=== PATIENT | female | born 1995 | race Caucasian/White ===

== ENCOUNTER 2019-08-27 13:20 | Observation (INO) | payer MEDICAID, SELFPAY ==
[2019-08-27] VITALS (18 sets, daily range): BP systolic 79–123; BP diastolic 43–84; PULSE 59–99; RESP 15–17; TEMP 36.1–37.1; O2SAT 98–100; BMI 30.5; BMI 29.1; BMI 29.2
--- NOTE | 2019-08-27 13:59 | US_ITS ---
STUDY: FIRST TRIMESTER OBSTETRICAL ULTRASOUND REASON FOR EXAM: Female, 24 years old VAGINAL BLEEDING, PELVIC PAIN HCG 1496 LMP: 06/18/2019 TECHNIQUE: Transabdominal and Transvaginal TECHNICAL QUALITY: Adequate. PRIOR ULTRASOUND: None. FINDINGS: There is no demonstrated intrauterine gestational sac. There is no demonstrated embryo ( pole). The estimated gestation age (EGA) by LMP is 10 weeks, 0 days. The estimated date of delivery (ABI) by LMP is 03/24/2020. The uterus measures 10.0 x 4.9 x 4.3 cm. Abnormal endometrial echoes. Endometrial echoes are heterogeneous and difficult to accurately measure but the endometrial cavity may be as much as 3 cm across, especially toward the endocervical canal. Findings are nonspecific but very likely represent retained products of conception. There is no demonstrated uterine fibroid. The cervix is grossly closed. The right ovary is not visualized. The left ovary measures 2.8 x 3.2 x 1.3 cm. There is no left ovarian cyst. There is no visualized left adnexal mass or complex lesion. There is mild fluid in the cul de sac. US/Transvaginal w/Preg US IMPRESSION: No evidence for normal intrauterine gestation. Abnormal endometrial cavity, most likely representing retained products of conception. Electronically Signed: Ji Jiang MD at 16:31 EDT , Service support ,
[2019-08-27] MEDS: 0.9% Normal Saline 1,000 ML 1000 ML IV (14:27)
[2019-08-27] MEDS: Morphine 4 MG/ML Syringe IV (14:27)
[2019-08-27] MEDS: Ondansetron 4 MG/2 ML Vial IV (14:28)
[2019-08-27 14:37] LABS: Mucous, Urine 0 SEEN /hpf (<or=2+); White Blood Cells 0 SEEN /hpf (0-5)
--- NOTE | 2019-08-27 14:37 | ED.DCSUM_ITS ---
History of Present Illness Chief Complaint: Vag Bld, Preg Informant: Patient Pain: Pelvic Pain Onset: Yesterday Context: Gradual Onset Timing: Intermittent Quality: Cramping, Sharp Issue: Vaginal bleeding, Passing clots, Passing tissue Onset: Yesterday Context: Gradual Onset Timing: Continuous Current Severity: Heavy Associated Symptoms: Missed Period Last known menstrual period: 06/18 Test: Positive Sexually: Active P: 0 Narrative: Patient is a 24-year-old female with no significant past medical history presenting with concern for miscarriage. Patient states for past 2 days she has had worsening cramping and vaginal bleeding. She states she had a positive test at the end of June. Her last menstrual period was the end of May. She has not followed up with an CRACKING MACHINE OPERATOR since then. Patient states she is going to about a pad an hour. She does not have an CRACKING MACHINE OPERATOR. She not taken anything for pain including Tylenol ibuprofen. She did try to take some Robaxin that she had from a prior hip procedure yesterday but it was not helpful. Patient describes her abdominal pain as sharp and cramping. She states it feels like her prior miscarriage. Past Medical History - Allergies and Home Meds Allergies/Adverse Reactions: Allergies acetaminophen [From Vicodin] Adverse Reaction (Verified 08/27/19 14:18) Upset Stomach hydrocodone [From Vicodin] Adverse Reaction (Verified 08/27/19 14:18) Upset Stomach Primary Care Physician: Care Physician,No Primary [Primary Care Provider] - Past Medical History: None Surgical History: - - Left hip surgery Smoking Status: Current every day smoker Review of Systems General: Denies: Chills, Fever, Sweats Eyes: Denies: Visual changes - bilaterally, Diplopia ENT: Denies: Rhinorrhea, Sore throat Cardiovascular: Denies: Chest pain, Palpitations Respiratory: Denies: Dyspnea, Cough, Dyspnea on exertion Gastrointestinal: Reports: Abdominal pain, Nausea. Denies: Vomiting, Diarrhea, Melena, Hematochezia Genitourinary: Reports: - - Vaginal bleeding. Denies: Dysuria, Hematuria, Frequency Musculoskeletal: Denies: Back pain, Extremity Pain Skin: Denies: Rash, Wounds Neurological: Denies: Headache, Weakness, Numbness Physical Exam Vital Signs/Narrative: Vital Signs Temp Pulse Resp BP Pulse Ox 08/27/19 13:22 97.6 F L 98 15 123/84 H 99 Inital Vital Signs reviewed: Yes General: Well nourished, Well developed Head: Normocephalic, Atraumatic Eyes: Perrl, EOMI ENT: Moist mucous membranes, No rhinorrhea Neck: Supple, Nontender Cardiovascular: Regular rate, Regular rhythm, No murmurs Respiratory: No distress, CTA bilaterally, Chest nontender Abdomen: Soft, Nondistended, Normal bowel sounds, Tender - Suprapubic region. Negative for: Guarding, Rebound tenderness Back: Nontender, Normal Inspection. Negative for: CVA tenderness Extremities: Nontender, No edema Skin: Normal color, No rash Neurological: Alert, Oriented x3, Cranial nerves II-XII grossly intact, Normal Strength, Normal Sensation Psychological: Normal affect Diagnostic/Tx/Re-eval Laboratory Data 08/27/19 08/27/19 08/27/19 14:25 14:25 14:25 WBC 13.4 H RBC 4.26 Hgb 13.5 Hct 39.6 MCV 93.0 MCH 31.7 MCHC 34.1 RDW Std Deviation 40.8 RDW Coeff of Basia 12.0 Plt Count 265 MPV 9.9 Immature Gran % (Auto) 0.500 Neut % (Auto) 79.3 H Lymph % (Auto) 15.1 L [place] % (Auto) 4.5 Eos % (Auto) 0.4 Baso % (Auto) 0.2 Absolute Neuts (auto) 10.6 H Absolute Lymphs (auto) 2.02 Nucleated RBC % 0 HCG, Quant 1496 H Urine Color Urine Clarity Urine pH Ur Specific [place] Urine Protein Urine Glucose (UA) Urine Ketones Urine Occult Blood Urine Nitrite Urine Bilirubin Urine Urobilinogen Ur Leukocyte Esterase Urine RBC Urine WBC Ur Squamous Epith Cells Urine Bacteria Urine Mucus Blood Type O POSITIVE 08/27/19 14:25 WBC RBC Hgb Hct MCV MCH MCHC RDW Std Deviation RDW Coeff of Basia Plt Count MPV Immature Gran % (Auto) Neut % (Auto) Lymph % (Auto) [place] % (Auto) Eos % (Auto) Baso % (Auto) Absolute Neuts (auto) Absolute Lymphs (auto) Nucleated RBC % HCG, Quant Urine Color Yellow Urine Clarity Sl. Cloudy Urine pH 6.5 Ur Specific [place] 1.010 Urine Protein Negative Urine Glucose (UA) Normal Urine Ketones Negative Urine Occult Blood 250 H Urine Nitrite Negative Urine Bilirubin Negative Urine Urobilinogen Normal Ur Leukocyte Esterase Negative Urine RBC 25-50 SEEN Urine WBC 0 SEEN Ur Squamous Epith Cells 0-5 SEEN Urine Bacteria 1+ Urine Mucus 0 SEEN Blood Type - Treatment/Re-Evaluation Treatment: Morphine IV - Medical Decision/Diagnostic Studies Evaluated for vaginal bleeding and pelvic cramping. She has had a positive home test. Her presentation is concerning for miscarriage versus ectopic . Given her degree of bleeding however I suspect more likely this is a miscarriage. Patient is Rh+ and does not require RhoGam. She is hemodynamica lly stable in the emergency room with a normal hemoglobin. She is not lightheaded or having any symptoms consistent with acute blood loss anemia. She is given morphine for pain control. Patient signed out to oncoming provider, Dr. Valdez, to follow ultrasound results. Patient will need referral to CRACKING MACHINE OPERATOR. ED Disposition - Plan for ED Patient: Referrals: Care Physician,No Primary [Primary Care Provider] -
[2019-08-27 14:39] LABS: Absolute Lymphocyte Count 2.02 X10^3/uL (0.83-4.51); Absolute Neutrophil Count 10.6 X10^3/uL (2.0-7.7); Basophil# 0.03 X10^3/uL; Basophil% 0.2 % (0-1); Color, Urine Yellow (Yellow); Eosinophil# 0.06 X10^3/uL; Eosinophils% 0.4 % (0-5); Glucose, Dipstick Normal (Normal); Hematocrit 39.6 % (37-47); Hemoglobin 13.5 g/dL (12.0-15.0); Ketone-Dipstick Negative (Negative); Leukocyte Esterase-Dipstick Negative /ul (Negative); Lymphocyte # 2.02 X10^3/ul (4.0); Lymphocyte % 15.1 % (19-41); Mean Corp Hgb Conc 34.1 g/dL (32-36); Mean Corpuscular Hgb 31.7 pg (27.0-32.0); Mean Platelet Vol. 9.9 fl (6.2-12.0); Monocyte# 0.61 X10^3/uL; Monocyte% 4.5 % (0-10); NRBC Flagged by Analyzer 0 % (0-5); Neutrophil # 10.63 X10^3/uL (2.7-7.7); Neutrophil % 79.3 % (47-70); Nitrite-Dipstick Negative (Negative); Occult Blood-Urine 250 /ul (Negative); Platelet Count 265 K/mm3 (150-450); Protein-Dipstick Negative (Negative); RBC Distribution Width SD 40.8 fl (35.1-43.9); Red Blood Count 4.26 M/mm3 (4.2-5.4); Urine Bilirubin Dipstick Negative (Negative); Urine Clarity Sl. Cloudy (Clear); Urine Urobilinogen Normal (Normal); Urine pH 6.5 (5.0 - 8.0); White Blood Count 13.4 K/mm3 (4.4-11.0)
[2019-08-27 14:48] LABS: Bacteria 1+ /hpf (None Seen); Red Blood Cells-Urine 25-50 SEEN /hpf (0-5); Squamous Epithelial Cells - UA 0-5 SEEN /hpf (5-10)
[2019-08-27 15:10] LABS: hCG Titer Quant., Serum 1496 mIU/mL (1-3)
[2019-08-27] MEDS: Ketorolac 15 MG/ML Vial IV (17:17)
--- NOTE | 2019-08-27 18:54 | PCM.HP.OB ---
- Problem List (1) Incomplete miscarriage Status: Acute History Date of Admission: 08/27/19 History of this : This is a 24 year-old, G 1, P 0, at ~9 weeks gestational age who presents with vaginal bleeding and cramping. She is uncertain of her LMP but thinks she is around 9 wks . She has had VB and cramping for 2 days. She says yesterday her bleeding became heavy and she was changing 1 pad per hour. Medical History: Medical History (Last Updated 08/27/19 @ 18:[address] Manisha Lew, DO) Asthma J45.909 Surgical History: Surgical History (Last Updated 08/27/19 @ 18:[address] Manisha Lew, DO) History of hip surgery Z98.890 Allergies acetaminophen [From Vicodin] Adverse Reaction (Verified 08/27/19 14:18) Upset Stomach hydrocodone [From Vicodin] Adverse Reaction (Verified 08/27/19 14:18) Upset Stomach Home Medications: Home Medications NK 08/27/19 Smoking Status: Current every day smoker History Past Pregnancies: Past Pregnancies Delivery Date Name GA/ Weeks Outcome Route Wt Infant Sex Labor Length Anesthesia Delivery Location Provider FOB Review of Systems Constitutional: Denies: Chills, Fever Eyes: Denies: Blurred vision HEENT: Denies: Head Aches Cardiovascular: Denies: Chest Pain Respiratory: Denies: Cough, Shortness of Breath Gastrointestinal: Reports: Abdominal Pain. Denies: Nausea, Vomiting Genitourinary: Denies: Dysuria Gynecological: Denies: Breast symptoms Hematologic/ Lymphatic: Denies: Anemia, Easy Bruising, Easy Bleeding, Hx of blood clot, Hx of blood transfusion Physical Exam Vitals: Vital Signs Temp Pulse Resp BP Pulse Ox 98.8 F 70 17 112/62 99 08/27/19 18:47 08/27/19 18:47 08/27/19 18:47 08/27/19 18:47 08/27/19 18:47 General: Alert, No apparent distress HEENT: Atraumatic Cardiovascular: Regular rate Lungs: Clear to auscultation Abdomen: Soft, Non-Distended Extremities:: No edema Neurological: Neuro grossly intact BARGE MASTER: Normal external genitalia Assessment/Plan All Active Problems Incomplete miscarriage (Acute) This is a 24 year-old, who presents to the ED with an incomplete miscarriage. - Pelvic US shows retained POC's - Rh positive - Hgb 13 but significant blood loss noted on exam. She appears pale. Will recheck CBC now and then post-op - POC's noted within endocervix but unable to remove on exam due to heavy bleeding - Recommended suction D&C. Discussed risks, benefits, alternatives to a suction D&C with patient and she desires to proceed - Discussed possible observation overnight and pt became upset as she does not want her parents to know of the . Discussed risks of acute blood loss anemia including . Will see what her Hgb is now and post-op to see if she is ok for discharge post-op
[2019-08-27 19:34] LABS: Hematocrit 31.5 % (37-47); Hemoglobin 10.5 g/dL (12.0-15.0); Mean Corp Hgb Conc 33.3 g/dL (32-36); Mean Corpuscular Hgb 31.3 pg (27.0-32.0); Mean Corpuscular Volume 93.8 fL (81-99); Mean Platelet Vol. 10.2 fl (6.2-12.0); Platelet Count 224 K/mm3 (150-450); RBC Distribution Width CV 12.2 % (11.6-14.6); RBC Distribution Width SD 41.8 fl (35.1-43.9); Red Blood Count 3.36 M/mm3 (4.2-5.4); White Blood Count 11.1 K/mm3 (4.4-11.0)
--- NOTE | 2019-08-27 20:15 | POC_PTH ---
PATIENT: BRENNEN WATT LOC: MS3 U#:[id number] AGE/SX: 24/ ROOM: [facility] RE08/27/[address]: Dr. Manisha Lew DO : 1995 BED: 1 DIS: 08/28/2019 SPEC #: [id number] RECD: 08/28/19 07:36 STATUS: LICHA REBrandon #: [id number] DUSTY: 08/27/19 20:[address]: Manisha Lew DEPT: SURGICAL PATHOLOGY RECD BY: Emerson Velarde ENTERED: 08/28/19 09:39 SP TYPE: PROD CONC OTHR DR: No Primary Care Phys Tissues: Product of conception, NOS Procedures: Surgery Specimen Level IV HEADER OPERATION: Suction D & C PRE-OP DIAGNOSIS: Incomplete miscarriage TISSUE SUBMITTED: Products of conception MICROSCOPIC DIAGNOSIS Products of conception: Fragments of immature placental tissue (products of conception). SJ:raciel 7/10/20 MICROSCOPIC DESCRIPTION Slides are reviewed. GROSS DESCRIPTION Received in fixative is one container labeled with the patient's name and designated products of conception. The specimen consists of multiple fragments of hemorrhagic soft tissue that in aggregate measure 6 x 6 x 3 cm. A piece of hemorrhagic tissue consistent with possible placental tissue is also noted. tissue is not identified. The possible placental tissue measures 4 x 3.5 x 2 cm. Phosphoric Acid Operator sections are submitted in two cassettes. / SJ:raciel 08/28/19 TC:5 CPT: 94637
--- NOTE | 2019-08-27 20:42 | DCINST_ITS ---
Discharge Diet: No Restrictions Discharge Activity: May Not Drive - for 24 hours after surgery, May Shower Return to work on:: 08/29/19 May resume sexual activity in: 1-2 weeks Weight Bearing Status: Weight bearing as tolerated Lifting Restrictions: No lifting restrictions Call your doctor if you observe: Fever of 101 or Higher, Inability to urinate, Inability to have a bowel movement, Using more than one pad per hour, Shortness of breath, Dizziness, Fainting spells, Chest pain, Increased palpitations (irregular heartbeat), Calf discomfort, Uncontrolled pain Additional Instructions: Nothing in the vagina for 1-2 weeks and not until the bleeding stops - this includes no hot tubs, baths, pools, tampons, intercourse. Allergies/Adverse Reactions: Allergies acetaminophen [From Vicodin] Adverse Reaction (Verified 08/27/19 14:18) Upset Stomach hydrocodone [From Vicodin] Adverse Reaction (Verified 08/27/19 14:18) Upset Stomach Medications to take at Discharge NK 08/27/19 Primary Care Physician: Care Physician,No Primary [Primary Care Provider] - Test Results: Test results from this visit will be discussed in further detail at your follow- up appointment, if applicable. Please Follow Up With: Manisha Lew DO When: 1 week
--- NOTE | 2019-08-27 20:47 | PCM.WORK.EX ---
Work/School Excuse Work/School Excuse for:: Patient Please excuse this person from:: Work From: 08/27/19 through: 08/28/19 - Can return to work on 08/29/19.
--- NOTE | 2019-08-27 20:48 | PCM.OPRPT ---
Problem List (1) Incomplete miscarriage Status: Acute Report of Operation Date of Procedure: 08/27/19 Pre-Operative Diagnosis: Incomplete miscarriage Post-Operative Diagnosis: As above Surgery/Procedure Performed:: Suction D&C Description of Surgical Findings:: Uterus enlarged to about 9-10 weeks in size. Heavy vaginal bleeding once back in OR. POC's noted. Type of Anesthesia:: MAC Special Medications: None Specimen's removed: Products of conception Drains: None Estimated Blood Loss (mL): 50 Description of Procedure: The patient was taken back to the operating room where MAC anesthesia was found to be adequate. She was prepped and draped in the usual sterile fashion in dorsal lithotomy position using yellowfin stirrups. Doxycycline was given through the IV prior to start of the procedure. A weighted speculum was placed in the vagina and the cervix was exposed. The anterior lip of the cervix was grasped with a single-tooth tenaculum. The cervix was serially dilated to accommodate a size 9 suction curettage. Several passes were made with removal of tissue. A gentle pass was made with the sharp curettage, and additional products were noted anteriorly. A size 12 suction curettage was then used to remove additional products of conception anteriorly. Several passes were made with the suction curettage until no additional tissue was noted. Bleeding was hemostatic and uterus was firm. All instruments were removed from the vagina. Instrument sponge counts were correct. Vaginal sweep was performed. Patient was taken to the recovery room in stable condition. Grafts/Implants Used: None - Complications None - Admit VTE Documentation VTE Present on Admission: No VTE Mechan Device Prophylaxis: SCD's
[2019-08-27] MEDS: Lactated Ringers 500 ML 999 ML IV (22:45)
--- NOTE | 2019-08-27 22:45 | SUR.PHASEII ---
paged Dr Lew at 1017, did not call back At 1030 requested that she be paged again, was told that I would need to speak to Trish Trinh. Trish ordered CBC and 500cc bolus of LR. Will call her back with cbc results.
[2019-08-27 22:57] LABS: Hematocrit 28.3 % (37-47); Hemoglobin 9.2 g/dL (12.0-15.0); Mean Corp Hgb Conc 32.5 g/dL (32-36); Mean Corpuscular Hgb 31.1 pg (27.0-32.0); Mean Corpuscular Volume 95.6 fL (81-99); Mean Platelet Vol. 10.1 fl (6.2-12.0); Platelet Count 227 K/mm3 (150-450); RBC Distribution Width CV 12.2 % (11.6-14.6); RBC Distribution Width SD 42.2 fl (35.1-43.9); Red Blood Count 2.96 M/mm3 (4.2-5.4); White Blood Count 10.5 K/mm3 (4.4-11.0)
[2019-08-28] VITALS (8 sets, daily range): BP systolic 95–128; BP diastolic 34–48; PULSE 61–86; RESP 16; TEMP 36.4–36.9; O2SAT 98–100
[2019-08-28] MEDS: 0.9% Normal Saline 1,000 ML 15 ML IV (00:07)
[2019-08-28 06:38] LABS: Hematocrit 25.5 % (37-47); Hemoglobin 8.5 g/dL (12.0-15.0); Mean Corp Hgb Conc 33.3 g/dL (32-36); Mean Corpuscular Hgb 31.8 pg (27.0-32.0); Mean Corpuscular Volume 95.5 fL (81-99); Platelet Count 225 K/mm3 (150-450); RBC Distribution Width CV 12.5 % (11.6-14.6); RBC Distribution Width SD 43.2 fl (35.1-43.9); Red Blood Count 2.67 M/mm3 (4.2-5.4); White Blood Count 9.7 K/mm3 (4.4-11.0)
--- NOTE | 2019-08-28 11:57 | PCM.PN.OB ---
Patient Problems: Active and Suspected Problems (Last Updated 08/27/19 @ 18:[address] Manisha Lew, DO) Incomplete miscarriage (Acute) Subjective: Patient doing well. She reports she is ambulated and voided this morning. She states she is lightheaded and dizzy just lying in bed. Vaginal bleeding is very minimal. She is not having any pain. She desires to go home today. - Physical Exam Vitals/I&O's: Vital Signs Temp Pulse Resp BP Pulse Ox 98.3 F 83 16 97/42 L 98 08/28/19 11:53 08/28/19 11:53 08/28/19 11:53 08/28/19 11:53 08/28/19 11:53 Oxygen Delivery Method Room Air Weight: 186 lb 4.65 oz Body Mass Index (BMI) 29.1 Intake and Output for Last 24 Hours 08/26/19 08/27/19 08/28/19 23:59 23:59 23:59 Intake Total 1770 / 1770 474.5 / 474.5 Output Total 300 / 300 900 / 900 Balance 1470 / 1470 -425.5 / -425.5 General: Alert, No apparent distress HEENT: Atraumatic Abdomen: Soft, Non Tender, Non-Distended Extremities: No edema Skin: No rashes Neurological: Neuro grossly intact Psych/Mental Status: Normal Affect, Appropriate Laboratory Results 08/27/19 14:25: WBC 13.4 H, RBC 4.26, Hgb 13.5, Hct 39.6, MCV 93.0, MCH 31.7, MCHC 34.1, RDW Std Deviation 40.8, RDW Coeff of Basia 12.0, Plt Count 265, MPV 9.9, Immature Gran % (Auto) 0.500, Neut % (Auto) 79.3 H, Lymph % (Auto) 15.1 L, [place] % (Auto) 4.5, Eos % (Auto) 0.4, Baso % (Auto) 0.2, Absolute Neuts (auto) 10.6 H, Absolute Lymphs (auto) 2.02, Nucleated RBC % 0 08/27/19 14:25: HCG, Quant 1496 H 08/27/19 14:25: Blood Type O POSITIVE 08/27/19 14:25: Urine Color Yellow, Urine Clarity Sl. Cloudy, Urine pH 6.5, Ur Specific [place] 1.010, Urine Protein Negative, Urine Glucose (UA) Normal, Urine Ketones Negative, Urine Occult Blood 250 H, Urine Nitrite Negative, Urine Bilirubin Negative, Urine Urobilinogen Normal, Ur Leukocyte Esterase Negative, Urine RBC 25-50 SEEN, Urine WBC 0 SEEN, Ur Squamous Epith Cells 0-5 SEEN, Urine Bacteria 1+, Urine Mucus 0 SEEN 08/27/19 14:25: Blood Type O POSITIVE, Antibody Screen NEGATIVE, Crossmatch See Detail 08/27/19 19:15: WBC 11.1 H, RBC 3.36 L, Hgb 10.5 L, Hct 31.5 L, MCV 93.8, MCH 31.3, MCHC 33.3, RDW Std Deviation 41.8, RDW Coeff of Basia 12.2, Plt Count 224, MPV 10.2 08/27/19 22:50: WBC 10.5, RBC 2.96 L, Hgb 9.2 L, Hct 28.3 L, MCV 95.6, MCH 31.1, MCHC 32.5, RDW Std Deviation 42.2, RDW Coeff of Basia 12.2, Plt Count 227, MPV 10.1 08/28/19 06:20: WBC 9.7, RBC 2.67 L, Hgb 8.5 L, Hct 25.5 L, MCV 95.5, MCH 31.8, MCHC 33.3, RDW Std Deviation 43.2, RDW Coeff of Basia 12.5, Plt Count 225, MPV 10.0 Current Medications Hydrocodone Bitart/Acetaminophen ([place] 5mg-325mg) 1 - 2 tablet PO Q6H PRN PRN PRN Reason: Pain Score 6-10/10 Sodium Chloride () 1,000 mls @ 15 mls/hr IV .Q48H TONY Last Infusion: 08/28/19 11:45 Dose: 0 mls/hr Documented by: Ondansetron HCl (Zofran) 4 mg IM X1 PRN PRN Reason: NAUSEA Sodium Chloride () 10 - 40 ml IV UD PRN PRN Reason: SALINE FLUSH Medical Necessity - Tobacco Use Smoking Status: Current every day smoker Tobacco Use: Cigarettes Assessment/Plan All Active Problems (Last Updated 08/27/19 @ 18:[address] Manisha Lew, DO) Incomplete miscarriage (Acute) The patient status post suction D&C for an incomplete miscarriage. She was admitted given postop syncope and acute blood loss anemia. She has symptoms of anemia this morning. HDS. Discussed risks, benefits, alternatives to blood transfusion and she is agreeable to receiving 1 unit of packed red blood cells. Consent was obtained to give a blood transfusion. Will check CBC after the blood transfusion. If patient does well after the transfusion she is okay to go home. Discharge instructions reviewed.
--- NOTE | 2019-08-28 11:59 | DCINST_ITS ---
Discharge Diet: No Restrictions Discharge Activity: May Not Drive - for 24 hours after surgery, May Shower Return to work on:: 08/29/19 May resume sexual activity in: 1-2 weeks Weight Bearing Status: Weight bearing as tolerated Call your doctor if you observe: Fever of 101 or Higher, Inability to urinate, Inability to have a bowel movement, Using more than one pad per hour, Shortness of breath, Dizziness, Fainting spells, Chest pain, Increased palpitations (irregular heartbeat), Calf discomfort, Uncontrolled pain Additional Instructions: Nothing in the vagina for 1-2 weeks and not until the bleeding stops - this includes no hot tubs, baths, pools, tampons, intercourse. Allergies/Adverse Reactions: Allergies acetaminophen [From Vicodin] Adverse Reaction (Verified 08/27/19 14:18) Upset Stomach hydrocodone [From Vicodin] Adverse Reaction (Verified 08/27/19 14:18) Upset Stomach Medications to take at Discharge Methocarbamol [Robaxin] 500 mg PO 4X/DAY PRN 08/27/19 Primary Care Physician: Care Physician,No Primary [Primary Care Provider] - Test Results: Test results from this visit will be discussed in further detail at your follow- up appointment, if applicable. Please Follow Up With: Manisha Lew DO When: 1 week
[2019-08-28] MEDS: 0.9% Saline Lock 10 ML Syringe IV ×2 (12:24→12:25)
[2019-08-28 16:47] LABS: Hemoglobin 8.9 g/dL (12.0-15.0); Mean Corpuscular Hgb 31.1 pg (27.0-32.0); Mean Corpuscular Volume 94.4 fL (81-99); Mean Platelet Vol. 10.3 fl (6.2-12.0); Platelet Count 198 K/mm3 (150-450); RBC Distribution Width CV 12.8 % (11.6-14.6); RBC Distribution Width SD 43.9 fl (35.1-43.9); Red Blood Count 2.86 M/mm3 (4.2-5.4); White Blood Count 8.4 K/mm3 (4.4-11.0)
== END 2019-08-28 17:37 | disposition home or self-care (01) ==
LOC: ED 14:05 → SDC 19:33 → AC 19:33 → MS3 08-28 08:49
PROVIDERS: Advanced Practice Midwife; Admitting Provider Obstetrics & Gynecology; Emergency Provider Emergency Medicine; Visit Provider Obstetrics & Gynecology
PROC: (CPT 59812; principal; 2019-08-27 20:15)
DX: O03.4 Incomplete spontaneous abortion without complication (principal); F17.210 Nicotine dependence, cigarettes, uncomplicated; Z3A.09 9 weeks gestation of pregnancy; J45.909 Unspecified asthma, uncomplicated
CPT/HCPCS: 01965; 59812; 36415; 36430; 76817; 81001; 84702; 85025; 85027; 86850; 86900; 86901; 86920; 86922; 88305; 96374; 96375; 99218; 99282; J7030; J7120; P9016; A4216; G0378; G0379; J2405

== ENCOUNTER 2020-01-31 14:04 | Emergency (ER) | payer MEDICAID, SELFPAY ==
[2019-08-27 23:48] VITALS: BMI 29.1
[2020-01-31 14:05] VITALS: BP 127/73; PULSE 77; RESP 16; TEMP 36.1; O2SAT 100; BMI 28.1
--- NOTE | 2020-01-31 14:25 | ED.VIS.GEN ---
History of Present Illness Informant: Patient Onset: Yesterday Narrative: 44-year-old female presents with dental pain x2 to 3 days. She states her left lower posterior molar has been cracked for a long time. It started bothering her over the last few days and drainage. Denies fevers, chills, nausea, or vomiting. She is trying to get into a dentist. <Ursula Kimbrough - Last Filed: 01/31/20 14:25> <Steven Levine - Last Filed: 01/31/20 14:46> Chief Complaint: Dental Past Medical History Past Medical History: None Surgical History: - - Left hip surgery Smoking Status: Current every day smoker <Ursula Kimbrough - Last Filed: 01/31/20 14:25> <Steven Levine - Last Filed: 01/31/20 14:46> - Allergies and Home Meds Allergies/Adverse Reactions: Allergies acetaminophen [From Vicodin] Adverse Reaction (Verified 01/31/20 14:05) Upset Stomach hydrocodone [From Vicodin] Adverse Reaction (Verified 01/31/20 14:05) Upset Stomach Primary Care Physician: Care Physician,No Primary [Primary Care Provider] - Review of Systems General: Denies: Chills, Fever, Sweats Eyes: Denies: Visual changes - bilaterally, Diplopia ENT: Reports: - - dental pain. Denies: Rhinorrhea, Sore throat Cardiovascular: Denies: Chest pain, Palpitations Respiratory: Denies: Dyspnea, Cough, Dyspnea on exertion Gastrointestinal: Denies: Abdominal pain, Nausea, Vomiting, Diarrhea, Melena, Hematochezia Genitourinary: Denies: Dysuria, Hematuria, Frequency Musculoskeletal: Denies: Back pain, Extremity Pain Skin: Denies: Rash, Wounds Neurological: Denies: Headache, Weakness, Numbness <Ursula Kimbrough - Last Filed: 01/31/20 14:25> Physical Exam Vital Signs/Narrative: Vital Signs Temp Pulse Resp BP Pulse Ox 01/31/20 14:05 97 F L 77 16 127/73 H 100 ENT: - - Skin appears normal, no swelling, diffuse dental caries, tender over left lower posterior molar which is partially cracked, no palpable abscess, no trismus or tongue elevation, sublingual space is soft, airway intact, neck has good range of motion. <Ursula Kimbrough - Last Filed: 01/31/20 14:25> Vital Signs/Narrative: Vital Signs Temp Pulse Resp BP Pulse Ox 01/31/20 14:05 97 F L 77 16 127/73 H 100 <Steven Levine - Last Filed: 01/31/20 14:46> Diagnostic/Tx/Re-eval - Medical Decision Making Patient presented with dental pain. Patient appears well and nontoxic. Vital signs are within normal limits. She has diffuse dental caries. Left lower posterior molar is partially cracked which is chronic. No periapical abscess on exam. She was given Penicillin VK and advised to take ibuprofen. Follow up with a dentist. Return for new or worsening issues. <Ursula Kimbrough - Last Filed: 01/31/20 14:25> - Medical Decision Making Patient presents the emergency room for evaluation of 1 week of dental pain. Patient has focal tenderness on the left inferior posterior most molar. There is focal decay. No trismus. Mild facial swelling but no erythema no fever. Patient was started on antibiotics. Instructions to follow-up with dentistry as soon as possible. <Steven Levine - Last Filed: 01/31/20 14:46> ED Disposition <Ursula Kimbrough - Last Filed: 01/31/20 14:25> <Steven Levine - Last Filed: 01/31/20 14:46> - Plan for ED Patient: Disposition: Home or Assisted Living Diagnosis: Dental caries Instructions: Dental Abscess Prescriptions: Penicillin V Potassium 500 mg PO 4X/DAY #40 tab Prescription Printed Referrals: Care Physician,No Primary [Primary Care Provider] -
== END 2020-01-31 14:40 | disposition home or self-care (01) ==
LOC: ED 14:38
PROVIDERS: Emergency Provider Physician Assistant
DX: K02.9 Dental caries, unspecified (principal); F17.200 Nicotine dependence, unspecified, uncomplicated
CPT/HCPCS: 99282

== ENCOUNTER 2021-10-24 19:55 | Emergency (ER) | payer MEDICAID, SELFPAY ==
[2021-10-24 19:56] VITALS: BP 122/81; PULSE 92; RESP 18; TEMP 36.8; O2SAT 94; BMI 26.2
--- NOTE | 2021-10-24 20:13 | EDS_ITS ---
HPI History of Present Illness Chief Complaint: Dental Informant: patient Onset/Context/Timing Onset: Days (2 days) Context: Gradual Onset Narrative Narrative: Patient presents secondary to left lower dental pain. She states that a year ago she was seen in dentist in [place] that split her molar in half. She refused to let any other work be done and it has been like this for the past y ear. Have not bothered her until 2 days ago and now she has severe pain in that area going down her neck. She is taking Tylenol and ibuprofen without improvement. [facility] Medical History Asthma Dental caries Home Medications penicillin V potassium 250 mg tablet 500 mg PO 4X/DAY #40 tabs 10/24/21 [Rx Last Taken Unknown] tramadol 100 mg tablet 100 mg PO TID PRN pain #10 tabs 10/24/21 [Rx Last Taken Unknown] Allergy/AdvReac Type Severity Reaction Status Date / Time acetaminophen [From Vicodin] AdvReac Upset Verified 10/24/21 19:55 Stomach hydrocodone [From Vicodin] AdvReac Upset Verified 10/24/21 19:55 Stomach Surgical History History of hip surgery Social History Smoking Status: Current every day smoker tobacco type: cigarettes ROS ROS ED Constitutional Constitutional ED: Denies chills or fever(s) Eyes Eyes: Denies change in vision or discharge from eye(s) ENT ENT ED: Reports other Details: Dental pain ; Denies discharge from eye(s), rhinorrhea or sore throat Cardiovascular Cardiovascular: Denies chest pain or palpitations Respiratory/Chest Respiratory/Chest: Denies cough or dyspnea Gastrointestinal Gastrointestinal: Denies abdominal pain, diarrhea, nausea or vomiting Genitourinary Genitourinary ED: Denies dysuria Musculoskeletal Musculoskeletal: Denies back pain or extremity pain Integumentary Denies Abrasions or rash Neurologic Neurologic: Denies headache(s) or weakness Allergic/Immunologic Allergic/Immunologic ED: Denies lip swelling or urticaria EXAM Physical Exam Const Vital Signs: 10/24/21 19:56 Temperature 98.2 F Temperature Source Temporal Pulse Rate 92 Respiratory Rate 18 Blood Pressure 122/81 H Blood Pressure Mean 94 Pulse Ox 94 Oxygen Delivery Method Room Air Positive well nourished and well developed General Appearance ED: well developed HEENT Reports normocephalic and head/scalp atraumatic HEENT Narrative: No facial edema or erythema. Patient speaking with strong voice and tolerating secretions well. Intraoral examination reveals multiple dental caries. Her left mandibular first molar is split with the lateral portion of the tooth missing. There is mild surrounding gum edema. There is no trismus. Eyes PERRL and EOMs intact bilaterally Neck supple Chest Wall inspection of chest normal and palpation of chest normal Resp normal respiratory effort and clear to auscultation bilaterally Cardio regular rate and regular rhythm GI non-tender Palpation: soft Extremity normal to inspection Neuro oriented x3 and no sensory deficits noted Sensorium / Orientation: alert Motor Exam: strength 5/5 throughout Psych Mood & Affect: tearful Skin no rashes or lesions noted MDM MDM MDM Narrative Medical decision making narrative: Patient will be prescribed Pen-Vee K as well as tramadol. She will continue her Tylenol and ibuprofen. Dental referral list has been provided. Discharge Plan Triage Chief Complaint: Dental ED Provider: Agueda Cuellar Dx/Rx/DC Orders Clinical Impression: Odontalgia Instructions: ED Dental Pain Prescriptions: New penicillin V potassium 250 mg tablet 500 mg PO 4X/DAY Qty: 40 0RF tramadol 100 mg tablet 100 mg PO TID PRN (Reason: pain) Qty: 10 0RF Primary Care Provider: Care Physician,No Primary Referrals: Care Physician,No Primary [Primary Care Provider] - Activity Restrictions/Additional Instructions: Dental referral list provided. Disposition Disposition: Home, Self Care
[2021-10-24] MEDS: Penicillin Vk 250 MG Tablet 500 MG PO (20:17)
[2021-10-24] MEDS: traMADol 50 MG Tablet 100 MG PO (20:18)
== END 2021-10-24 20:22 | disposition home or self-care (01) ==
LOC: ED 20:20
PROVIDERS: Emergency Provider Emergency Medicine; Visit Provider Emergency Medicine
DX: K08.89 Other specified disorders of teeth and supporting structures (principal); F17.210 Nicotine dependence, cigarettes, uncomplicated
CPT/HCPCS: 99283

== ENCOUNTER 2022-01-31 08:30 | Inpatient (IN) | payer MEDICAID, SELFPAY ==
[2022-01-31] VITALS (45 sets, daily range): BP systolic 113–162; BP diastolic 44–114; PULSE 53–187; RESP 14–18; TEMP 35.7–36.8; O2SAT 81–100; BMI 32.4
[2022-01-31 08:37] LABS: ROM Internal Control Test YES-OK TO RESULT pt. (Internal QC); ROM Patient Test Negative (Negative)
[2022-01-31] MEDS: Lactated Ringers 1,000 ML 999 ML IV ×2 (08:55→11:01)
[2022-01-31] MEDS: Betamethasone/Betamethasone 30 MG/5 ML Vial 12 MG IM (08:56)
[2022-01-31] MEDS: LACTATED RINGERS 500 ML 999 ML IV (09:00)
[2022-01-31 09:10] LABS: Absolute Lymphocyte Count 2.16 X10^3/uL (0.83-4.51); Absolute Neutrophil Count 13.1 X10^3/uL (2.0-7.7); Basophil# 0.05 X10^3/uL; Basophil% 0.3 % (0-1); Eosinophil# 0.02 X10^3/uL; Eosinophils% 0.1 % (0-5); Hematocrit 36.4 % (37-47); Hemoglobin 12.5 g/dL (12.0-15.0); Lymphocyte # 2.16 X10^3/ul (0.83-4.51); Lymphocyte % 13.3 % (19-41); Mean Corp Hgb Conc 34.3 g/dL (32-36); Mean Corpuscular Volume 90.3 fL (81-99); Monocyte# 0.74 X10^3/uL; Monocyte% 4.6 % (0-10); NRBC Flagged by Analyzer 0 % (0-5); Neutrophil # 13.12 X10^3/uL (2.7-7.7); Neutrophil % 81.1 % (47-70); Platelet Count 193 K/mm3 (150-450); RBC Distribution Width CV 12.5 % (11.6-14.6); RBC Distribution Width SD 40.9 fl (35.1-43.9); Red Blood Count 4.03 M/mm3 (4.2-5.4); White Blood Count 16.2 K/mm3 (4.4-11.0)
[2022-01-31 09:28] LABS: Bacteria 0 SEEN /hpf (None Seen); Mucous, Urine 0 SEEN /hpf (<or=2+)
[2022-01-31 09:30] LABS: Color, Urine Yellow (Yellow); Glucose, Dipstick Normal (Normal); Ketone-Dipstick 5 mg/dl (Negative); Leukocyte Esterase-Dipstick 100 /ul (Negative); Nitrite-Dipstick Negative (Negative); Occult Blood-Urine 150 /ul (Negative); Protein-Dipstick 30 mg/dl (Negative); Urine Bilirubin Dipstick Negative (Negative); Urine Clarity Sl. Cloudy (Clear); Urine Urobilinogen 1 mg/dl (Normal)
[2022-01-31 09:40] LABS: Red Blood Cells-Urine 0-5 SEEN /hpf (0-5); Squamous Epithelial Cells - UA 0-5 SEEN /hpf (5-10); White Blood Cells 0-5 SEEN /hpf (0-5)
[2022-01-31 09:44] LABS: Amphetamine Urine VISTA POSITIVE (<1000 ng/mL); Barbiturate Urine VISTA NEGATIVE (< 200 ng/mL); Benzodiazepine Urine VISTA NEGATIVE (< 200 ng/mL); Cocaine Urine VISTA NEGATIVE (< 300 ng/mL); Ecstacy Urine VISTA POSITIVE (< 500 ng/mL); Methadone Urine VISTA NEGATIVE (< 300 ng/mL); PCP Urine VISTA NEGATIVE (< 25 ng/mL); THC Urine VISTA NEGATIVE (< 50 ng/mL); Vista UDS pH Range 5
[2022-01-31 09:57] LABS: Rubella IgG Reactive (Nonreactive); Syphilis Antibodies Non-reactive
[2022-01-31 10:29] LABS: HIV - WCH Non-Reactive (Nonreactive); Hepatitis B Surface Antigen Non-Reactive (Nonreactive); Hepatitis C Antibody Non-Reactive (Nonreactive)
[2022-01-31] MEDS: fentaNYL-bupivacaine (epidural) 100 ML BAG EPIDURAL (11:06)
--- NOTE | 2022-01-31 12:44 | PCM.HP.OB ---
[facility] - General General Date of Admission: 01/31/22 Date of Service: 01/31/22 Chief Complaint: labor HPI Narrative BRENNEN WATT, is a 26 3 who para 0 with last menstrual period of 05/11/2021 who has had 1 visit in our office last week with some lab work and no official ultrasound presents today complaining contractions that started about 3 AM. She denied any vaginal bleeding or leaking of fluid. She felt good movement. Obstetric history significant for 1 spontaneous miscarriage and 1 induced . Social history is significant for tobacco and marijuana use. Patient denies other drug use during the . Patient consented verbally for urine tox screen today. Patient denies any history of sexually transmitted diseases. Maternal Data Information Final ABI: 02/15/22 Final ABI Source: LMP (only) Gestational age: 37 6/7 PFSH PFSH Medical History Asthma Dental caries Home Medications aspirin 81 mg capsule 162 mg PO DAILY 01/31/22 [History Last Taken Unknown] Allergy/AdvReac Type Severity Reaction Status Date / Time acetaminophen [From Vicodin] AdvReac Upset Verified 01/31/22 08:20 Stomach hydrocodone [From Vicodin] AdvReac Upset Verified 01/31/22 08:20 Stomach milk AdvReac Nausea Verified 01/31/22 08:21 Surgical History History of hip surgery Social History Smoking Status: Current every day smoker tobacco type: cigarettes History Elective abortions Hx Para 0 Spontaneous abortions Hx # Term Pregnancies Ectopic pregnancies Hx # Pregnancies Multiple births # of living children ROS Constitutional Constitutional: Denies fatigue, fever(s) or malaise Eyes Eyes: Denies change in vision ENT HEENT: Denies dizziness or headache(s) Cardiovascular Cardiovascular: Denies chest pain, dyspnea or lightheadedness Respiratory/Chest Respiratory/Chest: Denies cough or dyspnea Gastrointestinal Gastrointestinal: Denies change in bowel habits Genitourinary Genitourinary: Denies burning urination or genital lesions Integumentary Integumentary: Denies rash Neurologic Neurologic: Denies confusion, dizziness, headache(s), numbness or weakness Vital Signs Vital Signs Vital Signs: 01/31/22 08:14 01/31/22 08:14 01/31/22 09:35 Temperature Temperature Source Pulse Rate 113 H Blood Pressure 141/89 H 137/98 H BP Systolic 141 137 BP Diastolic 89 98 Pulse Ox 01/31/22 09:35 01/31/22 09:42 01/31/22 09:42 Temperature Temperature Source Pulse Rate 72 75 Blood Pressure BP Systolic BP Diastolic Pulse Ox 96 01/31/22 09:45 01/31/22 09:45 01/31/22 09:47 Temperature Temperature Source Pulse Rate 58 L 85 Blood Pressure 128/71 H BP Systolic 128 BP Diastolic 71 Pulse Ox 01/31/22 09:47 01/31/22 09:50 01/31/22 09:50 Temperature Temperature Source Pulse Rate 94 Blood Pressure 135/81 H BP Systolic 135 BP Diastolic 81 Pulse Ox 92 01/31/22 09:52 01/31/22 09:52 01/31/22 09:54 Temperature Temperature Source Pulse Rate 77 Blood Pressure 118/69 BP Systolic 118 BP Diastolic 69 Pulse Ox 100 01/31/22 09:54 01/31/22 09:57 01/31/22 09:57 Temperature Temperature Source Pulse Rate 87 89 Blood Pressure BP Systolic BP Diastolic Pulse Ox 100 01/31/22 09:59 01/31/22 09:59 01/31/22 10:02 Temperature Temperature Source Pulse Rate 86 90 Blood Pressure 116/65 BP Systolic 116 BP Diastolic 65 Pulse Ox 01/31/22 10:02 01/31/22 10:06 01/31/22 10:06 Temperature Temperature Source Pulse Rate 88 Blood Pressure BP Systolic BP Diastolic Pulse Ox 100 86 01/31/22 10:07 01/31/22 10:07 01/31/22 10:11 Temperature Temperature Source Pulse Rate 88 86 Blood Pressure BP Systolic BP Diastolic Pulse Ox 98 01/31/22 10:11 01/31/22 10:15 01/31/22 10:15 Temperature Temperature Source Pulse Rate 89 Blood Pressure BP Systolic BP Diastolic Pulse Ox 89 99 01/31/22 10:30 01/31/22 10:30 01/31/22 11:00 Temperature Temperature Source Pulse Rate 91 Blood Pressure 118/64 132/90 H BP Systolic 118 132 BP Diastolic 64 90 Pulse Ox 01/31/22 11:00 01/31/22 11:04 01/31/22 11:04 Temperature 96.6 F L Temperature Source Temporal Pulse Rate 92 Blood Pressure BP Systolic BP Diastolic Pulse Ox 01/31/22 11:46 01/31/22 11:46 Temperature 97.2 F L Temperature Source Temporal Pulse Rate Blood Pressure BP Systolic BP Diastolic Pulse Ox Weight Weight: 91.2 kg Body Mass Index (BMI) 32.4 Physical Exam Const alert and no apparent distress General Appearance: cooperative HEENT normocephalic HEENT Narrative: extensive dental carries Resp normal respiratory effort Cardio regular rate GI soft to palpation GI Narrative: gravid, nontender, appropriate for gestational age Extremity no calf tenderness General Extremity: edema Skin no wounds Rashes: No rashes noted Psych activity/motor behavior normal Labs Labs Labs: Blood Type O POSITIVE Antibody Screen NEGATIVE Hct 36.4 % (37-47) L Hgb 12.5 g/dL (12.0-15.0) Obstetrics US Syphilis Total Ab Non-reactive Rubella IgG Antibody Reactive (Nonreactive) Hep Bs Antigen Non-Reactive (Nonreactive) HIV 1&2 Antibody Non-Reactive (Nonreactive) Assessment & Plan (1) 37 weeks gestation of : PLAN: Estimated weight is less than 4500 g clinically. Pelvis clinically adequate to expect vaginal delivery. May have epidural or nitrous oxide as needed for pain control Patient's only had 1 visit no official dating ultrasound. Will use last menstrual period for dating but pediatrics is aware of uncertain dates. Initially when patient arrived I was informed she was 35 weeks and so she was given 1 dose of betamethasone and group B strep prophylaxis was initiated. She had already had a cervical exam so rapid GBS was not sent. We will continue GBS prophylaxis since it was initiated and GBS is unknown even though I am considering her 37 weeks at this time. Pediatrics and social work case manager are aware. labs sent in anticipation of delivery as records were not available when patient arrived (2) Spontaneous onset of labor: (3) Poor patient attendance of care:
[2022-01-31] MEDS: Penicillin G 3,000,000 Units 50 ML 100 UNITS IV (13:43)
[2022-01-31] MEDS: Cefazolin 2 GM in 0.9% Normal Saline 100 ML IV (14:27)
[2022-01-31] MEDS: Methylergonovine 0.2 MG/ML Ampul IM (14:45)
[2022-01-31 14:55] LABS: Hemoglobin A1c 5.1 % (3.8-5.6)
--- NOTE | 2022-01-31 15:00 | PLAC_PTH ---
PATIENT: BRENNEN WATT LOC: [facility] U#:[id number] AGE/SX: 26/F ROOM: WP009 RE01/31/[address]: Dr. Yuridia Villagomez MD : 1995 BED: 1 DIS: 02/03/2022 SPEC #: [id number] RECD: 01/31/22 22:29 STATUS: LICHA REBrandon #: [id number] DUSTY: 01/31/22 15:[address]: Yuridia Villagomez DEPT: SURGICAL PATHOLOGY RECD BY: Emerson Velarde ENTERED: 02/01/22 09:37 SP TYPE: PLACENTA OTHR DR: No Primary Care Phys Tissues: Placenta, NOS Procedures: Surgery Specimen Level V HEADER OPERATION: Primary section PRE-OP DIAGNOSIS: decelerations TISSUE SUBMITTED: Placenta MICROSCOPIC DIAGNOSIS Ryan placenta (610 gm): Umbilical cord ? trivascular with acute funisitis Placental membranes ? acute chorioamnionitis and acute deciduitis. Placental disc ? remote infarcts, Anthony-Reilly change and focal nonspecific chronic villitis. AM:raciel 02/03/2022 MICROSCOPIC DESCRIPTION Slides are reviewed. GROSS DESCRIPTION SPECIMEN: PLACENTA / CLINICAL INFORMATION: A. Weight: 2.68 kg B. Gestational Age: 38 weeks C. Sex: Male PLACENTAL WEIGHT (POST FIXATION): 610 gm PLACENTAL DIMENSIONS: 17 x 18 x 4 cm PLACENTAL SHAPE: Usual ovoid PLACENTAL WEIGHT FOR GESTATIONAL AGE: over 99th percentile MEMBRANES - Present A. Insertion: Marginal B. Site of rupture from edge: At edge of placental disc C. Color of membrane: Ramos-rayo D. Abnormalities: None UMBILICAL CORD - Present A. Color: Ramos-rayo B. Insertion: Marginal C. Length: 32 cm D. Diameter: 1.2 cm E. Number of vessels: Three F. Abnormalities: None PLACENTAL DISC - Present A. Color of surface: Ramos-rayo B. surface abnormalities: None C. Maternal cotyledons: Intact with minimal tears D. Attached retro placental clot: No clot E. Cut surface: Dark red and spongy F. Lesions: Sections reveal a ramos, indurated area in the peripheral portion of the placenta measuring 2 cm in greatest dimension. G. Separate clot: Absent SECTIONS SUBMITTED: 1. Membrane roll 2. Cord, maternal end 3. Cord, end 4. Placental disc, and maternal surfaces, lesion 5. Placental disc, and maternal surfaces 6. Placental disc, and maternal surfaces SJ:raciel 02/02/2022 TC:2 CPT: 06631
--- NOTE | 2022-01-31 15:06 | EX.PCM.OBRPT ---
Assessment & Plan (1) Poor patient attendance of care: (2) Spontaneous onset of labor: (3) 37 weeks gestation of : (4) Prolonged heart deceleration: Maternal Data Information Final ABI: 02/15/22 Gestational age: 37 6/7 Details Operative Information Date of Procedure: 01/31/22 Pre-Operative Diagnosis: Recurrent prolonged decelerations remote from delivery Post-Operative Diagnosis: Same Procedure Type: low transverse principal quality engineer #1: Pat Rosa Type of Anesthesia: Epidural Anesthesiologist: Jaime De Los Santos Special Medications: one Antibiotic Given: Ancef 2 grams IV x1 Drain: Merino to straight drain Estimated Blood Loss: 700 Fluids Replaced: 1500 Procedure Start Time: 14:39 Procedure Stop Time: 15:09 Time of Delivery: 14:41 Findings Description of Procedure: The patient was taken to the operating room. She was prepped and draped in the dorsal supine position with a leftward tilt. A Pfannenstiel skin incision was made approximately 2 cm above the symphysis pubis and carried through to underlying layer fascia with the scalpel. The fascia was incised incised in the midline and extended laterally with blunt dissection. The rectus muscles were in the midline and the peritoneum was entered bluntly. The peritoneal incision was stretched and the bladder blade was placed. The uterine incision was made in a low transverse fashion with the scalpel and extended superiorly and inferiorly with blunt dissection. The amniotic membranes were ruptured bluntly and clear amniotic fluid returned. The infant's head was brought to the incision in the flexed position and delivered without difficulty. The remainder of the infant was delivered with gentle traction and fundal pressure in the standard fashion. The mouth and nares were bulb suctioned. The cord was clamped and cut as the infant was stimulated. Cord clamping was not delayed.. The was handed off to the waiting nursing staff. The placenta was delivered with fundal massage and gentle traction in the standard fashion. The uterus was exteriorized and cleared of all clots and debris. The uterine incision was closed with #1 Vicryl in a running locked fashion. A second layer of the same suture was used in an imbricating fashion to obtain hemostasis. There was some mild atony that did not respond to uterine massage and IV Pitocin. 1 dose of Methergine was given IM for atony without hemorrhage. The uterus then firmed up nicely. The incision was examined and was found to be hemostatic. The uterus was placed back into the peritoneal cavity and hemostasis was again confirmed. The rectus muscles were examined and any bleeding was Bovie cauterized. The parietal peritoneum and rectus muscles were closed en bloc with an 0 Vicryl running suture. The surgical teams outer gloves were then changed. The rectus fascia was examined and any bleeding was Bovie cauterized and the rectus fascia was closed with 0 PDS suture in a running standard fashion. The subcutaneous tissue was examining and any bleeding was Bovie cauterized. The subcutaneous tissue was reapproximated with 3-0 Vicryl suture. The skin was closed in a subcuticular fashion by the MANAGER CHEMISTRY with me present in the labor and delivery suite. I performed the remainder of the procedure with assistance. All sponge, lap, and needle counts were correct. The patient was taken to her room for recovery in a stable condition. Presentation: Positive for Vertex Amniotic Membrane Rupture Type: Spontaneous Amniotic Fluid Description: Clear Placental Delivery Description: Expressed Placenta Disposition: Sent to Pathology Cord Vessel Description: 3 Vessels Cord Entanglement: None Cord Gases: ABG and VBG A Gender: Male (1 minute): 8 (5 minute): 9 Delayed Cord Clamping: No Complications Complications: None
[2022-01-31 15:08] LABS: Chlamydia Trachomatis by PCR Negative (Negative); Neisserai gonorrhoeae by PCR Negative (Negative); Probe Check PASS; Sample Adequacy Control PASS; Specimen Processing Control PASS
[2022-01-31] MEDS: Carboprost Tromethamine 250 MCG/ML Ampul IM (15:15)
[2022-01-31] MEDS: Oxytocin 15 Units/NS 250ml 15 UNITS/250 ML IV.SOLN 83 UNITS IV (15:59)
[2022-01-31] MEDS: Ketorolac 30 MG/ML Syringe IV ×2 (16:19→23:16)
[2022-01-31] MEDS: Ondansetron 4 MG/2 ML Vial IV (16:31)
[2022-01-31] MEDS: Acetaminophen 500 MG Tablet 1000 MG PO (18:11)
[2022-01-31] MEDS: Lactated Ringers 1,000 ML 100 ML IV (18:20)
--- NOTE | 2022-01-31 18:27 | NURSING ---
This nurse has been with the pt since 0945 throughout this shift pt has been lethargic, and drowsy. I asked her this morning what did she take prior to coming into the hosp. I told her her labs came back and I knew she had taken ectasy. She said oh you know about that, she stated she last smoked marijuana but admitted it could have had something else in it. Pt slept through out her c section, staff was not able to place baby on mom for skin to skin even because of moms condition. Once we got back into the room after her surgery at 1528 pt continued to be drowsy and sleepy she never complained of pain until I started writing this entry at 1830. She rates her pain a 6/10 when the pt coughs. pt is alert at this time and converses easily with me at this time. At 1648 the pt's mom asked the pt if she wanted to hold the baby pt said yes. The pt held her baby for 30 minutes in that time I saw the pt's mother 3 different times tell the pt to wake up you cant sleep and hold the baby, the pt's mom taped and gently shook the pt's head.
--- NOTE | 2022-01-31 18:51 | NURSING ---
called into the room by the pt's mom, stating the baby is not breathing and he is blowing bubbles. Baby alert, and resp easy baby had secretions around his mouth, care given and pt's mom aware baby is ok and he is breathing and looks normal.
[2022-01-31 22:31] LABS: Pathology Specimen OB SEE PATHOLOGY REPORT
[2022-02-01] MEDS: Acetaminophen 500 MG Tablet 1000 MG PO ×4 (00:47→19:09)
--- NOTE | 2022-02-01 01:25 | NURSING ---
Couplet care RN reported concern of mother being overly drowsy, frequently drifting off to sleep during conversation. This RN into room to assess pt. Pt awakens to name and then quickly closes eyes. speech mumbled. After talking to patient she started to wake up/Speech clear while awake. [place]-care and pad changed. pt sat up on side of bed without difficulty. When sitting on side of bed pt started to joke around with her sister whom was changing infants diaper. pt was then awake and alert and stood at bedside with 2 RN assist without difficulty. pt then marched in place and sat on side of bed. Pt then wanted to ambulate to restroom. While pt in restroom, this RN asked pt if she has taken any medications/drugs other then what we have given her here. Pt denied. This RN asked pt what she was taking prior to admission that has made her so drowsy. pt became very quiet. This RN discussed the importance of pt being transparent and truthful with staff so we can properly care for her and her baby. pt admitted to using meth, pt stated i smoked weed too but meth is the worst thing i have done This RN asked pt when she last used meth, she replied i dont know my memory does not work anymore. This ticket writer discussed concerns about her being so drowsy, pt then stated i am depressed, i wake up im depressed and then i go back to sleep pt then became tearful. pt denies thoughts of harming herself or others. When asked if she had thoughts of harming herself she said no i think that is stupid. depression and anxiety discussed with pt. RN offered to call to discuss her feelings of depression and the possibility of getting an antidepressant ordered. pt replied no i dont want that, im coming off meth and that can interfere with it pt reports seeking treatment in the past at 180. This RN asked pt if her sister or mother know about her drug use. pt replied my sister may, my mom thinks its my boyfriends fault pt states her boyfriend is Kunal, whom is not the FOB-when pt questioned if Kunal is also using drugs she stated i dont know what he is into. pt states Ramses is the FOB-reports Ramses is but going through a divorce and has 3 other children, pt states Ramses will not be involved with this baby. Emotional support provided to pt. Pt informed our social worker clinical will be working with her during her stay. pts sister and brother in law have been at bedside this evening. Her sister has been holding infant and providing care since coming to unit around 8pm.
--- NOTE | 2022-02-01 01:34 | NURSING ---
Taylor catheter removed 02/01/22 at 0130. initial taylor placement time not documented.
[2022-02-01 03:46] VITALS: BP 109/67; PULSE 67; RESP 18; TEMP 37.3; O2SAT 95
[2022-02-01] MEDS: Ketorolac 30 MG/ML Syringe IV ×2 (04:44→10:06)
[2022-02-01] MEDS: 0.9% Saline Lock 10 ML Syringe IV ×2 (04:45→10:06)
[2022-02-01 05:14] LABS: Hematocrit 31.5 % (37-47); Hemoglobin 10.3 g/dL (12.0-15.0); Mean Corp Hgb Conc 32.7 g/dL (32-36); Mean Corpuscular Hgb 30.1 pg (27.0-32.0); Mean Corpuscular Volume 92.1 fL (81-99); Mean Platelet Vol. 12.6 fl (6.2-12.0); Platelet Count 147 K/mm3 (150-450); RBC Distribution Width CV 12.6 % (11.6-14.6); RBC Distribution Width SD 42.5 fl (35.1-43.9); Red Blood Count 3.42 M/mm3 (4.2-5.4); White Blood Count 20.6 K/mm3 (4.4-11.0)
--- NOTE | 2022-02-01 08:43 | PCM.PN.OB ---
Subjective Subjective Patient seen at bedside. Sleeping soundly. Appears confused once awakened and talking to this provider. Initially said she was in no pain, then said she can't get out of bed because her tailbone is is so much pain. Stated not ambulating to bathroom (confirmed with nursing patient is ambulating). Patient stated doesn't remember why she had to have a section. not in room. Patient's sister and her sitting at bedside. She denies headache, dizziness, SOB or CP. Oriented x3 when questioned directly. building services engineer consulted and involved with care. Objective Data Objective Data Vital Signs: Vital Signs Temp Pulse Resp BP Pulse Ox O2 Del Method O2 Flow Rate 99.1 F 67 18 109/67 95 Room Air 10 02/01/22 03:46 02/01/22 03:46 02/01/22 03:46 02/01/22 03:46 02/01/22 03:46 02/01/22 03:46 01/31/22 13:36 Oxygen Flow Rate (L/min) 10 Oxygen Delivery Method Room Air Weight: 201 lb 0.985 oz Body Mass Index (BMI) 32.4 Intake & Output: Intake and Output for Last 24 Hours 01/30/22 01/31/22 02/01/22 23:59 23:59 23:59 Intake Total 3965 / 3965 Output Total 800 / 800 1400 / 1400 Balance 3165 / 3165 -1400 / -1400 Lab / Micro Data Result Diagrams: 02/01/22 04:54 Labs: Laboratory Results - last 24 hr 01/31/22 08:58: WBC 16.2 H, RBC 4.03 L, Hgb 12.5, Hct 36.4 L, MCV 90.3, MCH 31.0, MCHC 34.3, RDW Std Deviation 40.9, RDW Coeff of Basia 12.5, Plt Count 193, MPV 12.0, Immature Gran % (Auto) 0.600, Neut % (Auto) 81.1 H, Lymph % (Auto) 13.3 L, Coffee % (Auto) 4.6, Eos % (Auto) 0.1, Baso % (Auto) 0.3, Absolute Neuts (auto) 13.1 H, Absolute Lymphs (auto) 2.16, Nucleated RBC % 0 01/31/22 08:58: Blood Type O POSITIVE, Antibody Screen NEGATIVE 01/31/22 09:00: Urine Color Yellow, Urine Clarity Sl. Cloudy, Urine pH 6.0, Ur Specific [place] 1.020, Urine Protein 30 H, Urine Glucose (UA) Normal, Urine Ketones 5 H, Urine Occult Blood 150 H, Urine Nitrite Negative, Urine Bilirubin Negative, Urine Urobilinogen 1 H, Ur Leukocyte Esterase 100 H, Urine RBC 0-5 SEEN, Urine WBC 0-5 SEEN, Ur Squamous Epith Cells 0-5 SEEN, Urine Bacteria 0 SEEN, Urine Mucus 0 SEEN 01/31/22 09:00: Urine Opiates Screen NEGATIVE, Urine Methadone Screen NEGATIVE, Ur Barbiturates Screen NEGATIVE, Ur Phencyclidine Scrn NEGATIVE, Ur Amphetamines Screen POSITIVE H, MDMA (Ecstasy) Screen POSITIVE H, U Benzodiazepines Scrn NEGATIVE, Urine Cocaine Screen NEGATIVE, U Cannabinoids Screen NEGATIVE, Ur Drug Screen Comment 01/31/22 09:00: Hemoglobin A1c 5.1 01/31/22 09:05: Syphilis Total Ab Non-reactive, Rubella IgG Antibody Reactive 01/31/22 09:05: Hep Bs Antigen Non-Reactive, Hepatitis C Antibody Non-Reactive, HIV 1&2 Antibody Non-Reactive 01/31/22 11:45: Chlam trachomat DNA PCR Negative, N.gonorrhoeae DNA (PCR) Negative 02/01/22 04:54: WBC 20.6 H, RBC 3.42 L, Hgb 10.3 L, Hct 31.5 L, MCV 92.1, MCH 30.1, MCHC 32.7, RDW Std Deviation 42.5, RDW Coeff of Basia 12.6, Plt Count 147 L, MPV 12.6 H ROS Eyes Eyes: Denies blurry vision, change in vision or spots in vision ENT HEENT: Denies dizziness or headache(s) Cardiovascular Cardiovascular: Denies abdominal pain, chest pain or dyspnea Respiratory/Chest Respiratory/Chest: Denies dyspnea, shortness of breath at rest or shortness of breath with exertion Gastrointestinal Gastrointestinal: Denies abdominal pain, diarrhea or vomiting Genitourinary Genitourinary: Denies change in urinary stream, difficulty urinating or dysuria Musculoskeletal Musculoskeletal: Reports none Integumentary Integumentary: Denies rash Neurologic Neurologic: Denies dizziness, headache(s), memory loss or weakness Physical Exam Narrative Dressing is dry and intact Const no apparent distress Constitutional Narrative: Alert but sleeping during visit General Appearance: cooperative Exam Limitations: altered mental status HEENT normocephalic Neck full ROM General: normal visual inspection Chest Chest: symmetrical chest wall rise Resp normal respiratory effort and normal air movement Effort and Inspection: symmetric chest movement Cardio regular rate and regular rhythm GI soft to palpation and non-distended Back/Spine normal ROM Extremity no calf tenderness General Extremity: normal exam except as noted Skin no rashes or lesions noted Neuro moves all extremities Psych Psych Narrative: Difficulty keeping patient awake. Appears confused at times. Assessment & Plan (1) Poor patient attendance of care: (2) Status post primary low transverse section: PLAN: Plan PO Day 2 Primary C/S Pain control Increase ambulation Social service consult Anticipate discharge tomorrow
[2022-02-01 08:48] VITALS: BP 110/70; PULSE 62; RESP 16; TEMP 36.3; O2SAT 97
[2022-02-01 12:59] VITALS: BP 118/58; PULSE 60; RESP 16; TEMP 36.2; O2SAT 97
[2022-02-01 16:29] VITALS: BP 122/63; PULSE 64; RESP 18; TEMP 36.6; O2SAT 98
[2022-02-01] MEDS: Naproxen 250 MG Tablet 500 MG PO (17:25)
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
[2022-02-01 18:45] VITALS: BP 122/70; PULSE 65; RESP 18; O2SAT 98
--- NOTE | 2022-02-01 18:53 | NURSING ---
this RN called to pt's room, pt reports experiencing chest pain. when RN entered room pt was sitting up in bed tearful, pt's mother holding infant at bedside. pt reports to this RN that while she was sitting up in the rocking chair feeding she experienced chest pain radiating from mid chest shooting up to her right shoulder. pt's vital signs taken and within normal limits. pt denies feeling shortness of breath. during assessment pt reports that pain is no longer there but called out of concern. pt has been drowsy majority of the day and has been sleeping with little ambulation observed even after encouragement. CPlottsCNM states to continue to monitor, encourage ambulation d/t possible referred gas pain, no new order received to change the plan of care.
[2022-02-01 20:03] VITALS: BP 128/57; PULSE 73; RESP 18; TEMP 36.4
[2022-02-02] MEDS: Acetaminophen 500 MG Tablet 1000 MG PO ×4 (01:23→19:54)
[2022-02-02] MEDS: Naproxen 500 MG Tablet PO ×3 (01:24→15:43)
[2022-02-02 01:26] VITALS: BP 112/67; PULSE 74; RESP 16; TEMP 36.5
[2022-02-02 08:45] VITALS: BP 106/62; PULSE 60; RESP 16; TEMP 36.5; O2SAT 97
--- NOTE | 2022-02-02 09:09 | PCM.PN.OB ---
Subjective Subjective Denies complaints Objective Data Objective Data Vital Signs: Vital Signs Temp Pulse Resp BP Pulse Ox O2 Del Method O2 Flow Rate 97.7 F L 74 16 112/67 98 Room Air 10 02/02/22 01:26 02/02/22 01:26 02/02/22 01:26 02/02/22 01:26 02/01/22 18:45 02/02/22 01:26 01/31/22 13:36 Oxygen Flow Rate (L/min) 10 Oxygen Delivery Method Room Air Weight: 201 lb 0.985 oz Body Mass Index (BMI) 32.4 Intake & Output: Intake and Output for Last 24 Hours 01/31/22 02/01/22 02/02/22 23:59 23:59 23:59 Intake Total 3965 / 3965 Output Total 800 / 800 2099 / 2099 Balance 3165 / 3165 -2099 / -2099 Lab / Micro Data Result Diagrams: 02/01/22 04:54 Physical Exam Const alert, oriented x3 and no apparent distress HEENT normocephalic GI soft to palpation, non-tender and non-distended GI Narrative: fundus firm, mid & below umbilicus Incision - bandage c/d/i Extremity normal to inspection and no calf tenderness Assessment & Plan (1) Status post primary low transverse section: COMMENT: POD#2 (2) Poor patient attendance of care: PLAN: Plan Social work consult in process Likely discharge later today
--- NOTE | 2022-02-02 09:11 | DCINST_ITS ---
Discharge Instructions Diet Discharge Diet: No restrictions Activity Discharge Activity: May Shower May resume sexual activity in: 6 weeks Weight Bearing Status: Weight bearing as tolerated Dressing / Incision Call your doctor if your incision/area has: Continuous Slow Oozing, Sudden Increased Bleeding, Increased Pain/ Swelling, Increased Redness, Foul Smelling Discharge and Swelling at the incision site Call your doctor if you observe: Fever of 101 or Higher, Coldness, Increased Pain, Change in Color, Inability to urinate, Inability to have a bowel movement, Using more than 1 pad per hour, Shortness of breath, Dizziness, Fainting spells, Chest pain, Increased palpitations (irregular heartbeat), Calf discomfort and Uncontrolled pain Suture Line Care: Avoid Pulling/Pushing and Avoid Pinching/Bending Remove Dressing in: 1 week Cleanse incision/area with: Soap & Water Follow Up Care Please Follow Up With: Yuridia Villagomez MD When: Follow up in 2 and 6 weeks for visits. Test Results: Test results from this visit will be discussed in further detail at your follow- up appointment, if applicable. Discharge Plan Admission Admit Date/Time: 01/31/22 08:30 Primary Reason for Your Visit: section Attending Provider: Yuridia Villagomez Primary Care Provider: Care Physician,Tatyana Primary Discharge Orders/Prescriptions Prescriptions: New acetaminophen 500 mg Tablet 1,000 mg PO Q6 Qty: 40 0RF naproxen 500 mg Tablet 500 mg PO Q8H Qty: 40 0RF Discontinued aspirin 81 mg Capsule 162 mg PO DAILY Referrals / Follow Up: Care Physician,No Primary [Primary Care Provider] - Disposition Disposition (needs filled in before D/C Order can be placed): Home, Self Care
[2022-02-02] MEDS: Senna/Docusate Sodium 1 Tablet PO (09:43)
[2022-02-02 13:14] VITALS: BP 111/65; PULSE 65; RESP 16; TEMP 37.3; O2SAT 97
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
[2022-02-02 19:58] VITALS: BP 135/89; PULSE 75; RESP 15; TEMP 36.8; O2SAT 98
--- NOTE | 2022-02-03 00:33 | NURSING ---
Grandma to nurse's station and states Can you tell Carmita that she can take the baby to the nursery now? I'm leaving and his mom is sleeping so deep that I'm concerned she won't wake up to him. RN notified.
[2022-02-03] MEDS: Acetaminophen 500 MG Tablet 1000 MG PO ×2 (01:57→08:25)
[2022-02-03] MEDS: Naproxen 500 MG Tablet PO ×2 (01:57→10:33)
[2022-02-03 02:03] VITALS: BP 127/73; PULSE 71; RESP 15; TEMP 36.2; O2SAT 98
--- NOTE | 2022-02-03 02:04 | NURSING ---
RN walked in room and patient is awake talking on the phone. Baby currently in nursery due to maternal request for sleeping and grandma went home. RN asked if patient would like baby back in room since she is awake and she stated No, I'm probably going to go back to sleep. For this shift mom has not done any baby care, feeds, or held baby.
--- NOTE | 2022-02-03 08:16 | PCM.PN.OB ---
Subjective Subjective Doing well per patient and nursing staff. Ambulating and taking PO without difficulty. Voiding and passing flatus. Pain controlled. Denies headache, visual changes, chest pain, shortness of breath, leg pain or increased bleeding. Lochia normal.Planning D/C home today. Objective Data Objective Data Vital Signs: Vital Signs Temp Pulse Resp BP Pulse Ox O2 Del Method O2 Flow Rate 97.1 F L 71 15 127/73 H 98 Room Air 10 02/03/22 02:03 02/03/22 02:03 02/03/22 02:03 02/03/22 02:03 02/03/22 02:03 02/03/22 02:03 01/31/22 13:36 Oxygen Flow Rate (L/min) 10 Oxygen Delivery Method Room Air Weight: 201 lb 0.985 oz Body Mass Index (BMI) 32.4 Intake & Output: Intake and Output for Last 24 Hours 02/01/22 02/02/22 02/03/22 23:59 23:59 23:59 Output Total 2099 / 2099 Balance -2099 / -2099 Lab / Micro Data Result Diagrams: 02/01/22 04:54 ROS Constitutional Constitutional: Reports systems reviewed and no addt'l complaints, except as documented; Denies headache(s) Eyes Eyes: Denies acute decrease in peripheral vision, blurry vision or change in vision ENT HEENT: Reports systems reviewed and no addt'l complaints, except as documented Cardiovascular Cardiovascular: Denies chest pain or dizziness Respiratory/Chest Respiratory/Chest: Denies cough, dyspnea, dyspnea on exertion, shortness of breath at rest or shortness of breath with exertion Gastrointestinal Gastrointestinal: Denies abdominal pain, diarrhea, nausea or vomiting Genitourinary Genitourinary: Denies abdominal discomfort Musculoskeletal Musculoskeletal: Denies limited range of motion Integumentary Integumentary: Reports systems reviewed and no addt'l complaints, except as documented Neurologic Neurologic: Reports systems reviewed and no addt'l complaints, except as documented Psychiatric Psychiatric: Reports systems reviewed and no addt'l complaints, except as documented Endocrine Endocrinology: Reports systems reviewed and no addt'l complaints, except as documented Hematologic/Lymphatic Hematologic/Lymphatic: Reports systems reviewed and no addt'l complaints, except as documented Allergic/Immunologic Allergic/Immunologic: Reports systems reviewed and no addt'l complaints, except as documented Physical Exam Const alert and oriented x3 General Appearance: cooperative Orientation / Consciousness: awake, oriented to person, oriented to place and oriented to time Exam Limitations: no limitations HEENT normocephalic Head and Scalp: normal to inspection, normocephalic and atraumatic Face and Sinus: normal facial exam Eyes General Eye: normal appearance of both eyes Neck full ROM Chest Chest: symmetrical chest wall rise Resp normal respiratory effort and normal air movement Auscultation: clear to auscultation bilaterally Cardio regular rate, regular rhythm, S1 normal heart sound, S2 normal heart sound, no murmurs, no rub, no gallops and no clicks GI normal to inspection, nondistended, normoactive bowel sounds and non-tender GI Narrative: Dressing dry and intact. abdomen appropriately tender. Fundus firm 2 below U Auscultation: hypoactive bowel sounds Bladder / Kidney Exam: no CVA tenderness Back/Spine normal ROM Extremity normal to inspection and full ROM Skin no rashes or lesions noted Neuro oriented x3, CN's II-XII intact bilaterally and moves all extremities Sensorium / Orientation: awake, alert and oriented to person Motor Exam: clonus absent Deep Tendon Reflexes: Rt Patellar (L4): 2+ and Lt Patellar (L4): 2+ Assessment & Plan (1) Status post primary low transverse section: COMMENT: POD#3 PLAN: Plan 1) D/C home today 2) Routine postoperative care 3) railroad emergency services manager involved with patient discharge planning 4) Follow up in 1-2 weeks and 6 weeks PP
[2022-02-03 08:21] VITALS: BP 111/66; PULSE 72; RESP 16; TEMP 36.9; O2SAT 96
--- NOTE | 2022-02-03 08:47 | PCM.DC.SUM ---
Providers Date of Admission: 01/31/22 Primary Care Physician: Tatyana Primary Care Phys Reason For Visit: PRIMARY Diagnosis Discharge Diagnosis (1) Status post primary low transverse section: Status: Acute Code(s): Z98.891 - History of uterine scar from previous surgery Plan 1) D/C home today 2) Routine postoperative care 3) patient services representative involved with patient discharge planning 4) Follow up in 1-2 weeks and 6 weeks PP Medications at Discharge Home Medications acetaminophen 500 mg tablet 1,000 mg PO Q6 #40 tabs 02/02/22 naproxen 500 mg tablet 500 mg PO Q8H #40 tabs 02/02/22 Hospital Course Summary of Care Provided Hospital Course: Presented on 01/31/22 in spontaneous labor. Limited care and substance abuse during . 02/01/22 LTCS due to prolonged heart rate decelerations. patient services representative involvement and case plan in place, discharge planning home with patients mother for safety. D/C home and course uneventful medically. Weight / BMI Weight Weight: 201 lb 0.985 oz Body Mass Index (BMI) 32.4 ABG / Lab / Microbiology Data Result Diagrams: 02/01/22 04:54 D/C Instructions Discharge Diet: No restrictions May resume sexual activity in: 6 weeks Weight Bearing Status: Weight bearing as tolerated Call your doctor if your incision/area has: Continuous Slow Oozing, Sudden Increased Bleeding, Increased Pain/ Swelling, Increased Redness, Foul Smelling Discharge and Swelling at the incision site Call your doctor if you observe: Fever of 101 or Higher, Coldness, Increased Pain, Change in Color, Inability to urinate, Inability to have a bowel movement, Using more than 1 pad per hour, Shortness of breath, Dizziness, Fainting spells, Chest pain, Increased palpitations (irregular heartbeat), Calf discomfort and Uncontrolled pain Suture Line Care: Avoid Pulling/Pushing and Avoid Pinching/Bending Cleanse incision/area with: Soap & Water Please Follow Up With: Yuridia Villagomez MD When: Follow up in 2 and 6 weeks for visits. Meaningful Use Info Meaningful Use Diagnoses (Choose all that apply): None applicable Discharge Plan Admission Admit Date/Time: 01/31/22 08:30 Primary Reason for Your Visit: section Attending Provider: Yuridia Villagomez Primary Care Provider: Care Physician,No Primary Instructions Patient Instructions: After a Discharge Orders/Prescriptions Prescriptions: New acetaminophen 500 mg Tablet 1,000 mg PO Q6 Qty: 40 0RF naproxen 500 mg Tablet 500 mg PO Q8H Qty: 40 0RF Discontinued aspirin 81 mg Capsule 162 mg PO DAILY Referrals / Follow Up: Care Physician,No Primary [Primary Care Provider] - Disposition Discharge Orders: Discharge Patient (Routine); Ordered 02/02/22 Ordered By: Dr. Marcos Mack
[2022-02-03] MEDS: Senna/Docusate Sodium 1 Tablet PO (10:34)
[2022-02-03 13:14] VITALS: BP 120/72; PULSE 87; RESP 16; TEMP 36.4; O2SAT 98
[2022-02-06 16:08] LABS: Amphetamine Positive (.); AmphetamineGC/MS Conf >3000 ng/mL (Cutoff=500); Methamphetamines Positive (.)
[2022-02-06 19:06] LABS: Amphetamine Ur Confirm Positive (.)
== END 2022-02-03 14:35 | disposition home or self-care (01) | DRG 540 ==
LOC: WPOUT 08:34 → WP 08:35
PROVIDERS: Admitting Provider Obstetrics & Gynecology; Referring Provider Obstetrics & Gynecology; Visit Provider Obstetrics & Gynecology
DX: O99.324 Drug use complicating childbirth (principal); F12.90 Cannabis use, unspecified, uncomplicated; F17.210 Nicotine dependence, cigarettes, uncomplicated; Z37.0 Single live birth; Z79.82 Long term (current) use of aspirin; O99.334 Smoking (tobacco) complicating childbirth; O76 Abnormality in fetal heart rate and rhythm complicating labor and delivery; Z3A.37 37 weeks gestation of pregnancy
CPT/HCPCS: 59025; 59050; 76815; 80307; 81001; 83036; 84112; 85025; 85027; 86703; 86762; 86780; 86803; 86850; 86900; 86901; 87340; 87491; 87591; 88307; 99218; J7120; A4216; G0378; J0702; J2405

== ENCOUNTER 2022-02-17 11:46 | Emergency (ER) | payer MEDICAID, SELFPAY ==
[2022-02-17 11:48] VITALS: BP 109/76; PULSE 72; RESP 16; TEMP 36.4; O2SAT 100; BMI 27.0
--- NOTE | 2022-02-17 13:08 | ED.RN ---
PT NAME CALLED IN TRIAGE TO TAKE PT BACK TO A ROOM. PT NOT PRESENT IN ED WAITING ROOM OR HALLWAY.
== END 2022-02-17 13:09 | disposition left against medical advice (07) ==
LOC: ED 13:47
DX: Z53.21 Procedure and treatment not carried out due to patient leaving prior to being seen by health care provider (principal)

== ENCOUNTER 2022-03-01 22:13 | Emergency (ER) | payer MEDICAID, SELFPAY ==
[2022-03-01 22:14] VITALS: BP 116/77; PULSE 111; RESP 18; TEMP 36.7; O2SAT 98; BMI 25.8
--- NOTE | 2022-03-01 22:31 | ED.VIS.GI ---
HPI HPI - GI History of Present Illness Chief Complaint: Nausea/Vomiting/Diarrhea Informant: patient Abdominal Pain/Flank Pain Onset: Today Context: Gradual Onset Timing: Intermittent Quality: - (sore) Location: - (lower abd at inc site) Current Severity: Mild Maximum Severity: Mild Worsened by: - (vomiting) Nausea/Vomiting/Emesis GI Symptom: Positive for Nausea and Vomiting Onset: Today Quality: Positive for Nonbilious; Negative for Blood streaks Severity: Severe Diarrhea/Melena/Hematochezia GI Symptom: Positive for Diarrhea; Negative for Melena or Hematochezia Onset: Today Stool Quality: Positive for Watery Episodes: 6 Associated Symptoms Associated Symptoms: Negative for Dysuria, Frequency or Hematuria Narrative Narrative: Patient has had vomiting and diarrhea all day today and feels dehydrated. She has a baby who is almost 1-month-old, who has had the same symptoms but less severe, for similar period of time, started yesterday. No other known sick contacts. No fevers or chills. Intermittent lower abdominal discomfort mostly when she vomits. No abdominal cramping or other upper abdominal pains. No radiation into her back or elsewhere. No cough or shortness of breath. No urinary symptoms. States the first time she was able to keep some water down was just prior to coming here. No syncope or near syncope. [facility] Medical History Asthma Dental caries Poor patient attendance of [facility] Medications ondansetron 4 mg disintegrating tablet 8 mg PO Q8H PRN PRN Nausea #20 tabs 03/01/22 [Rx Last Taken Unknown] Allergy/AdvReac Type Severity Reaction Status Date / Time acetaminophen [From Vicodin] AdvReac Upset Verified 03/01/22 22:15 Stomach hydrocodone [From Vicodin] AdvReac Upset Verified 03/01/22 22:15 Stomach milk AdvReac Nausea Verified 03/01/22 22:15 Surgical History (Updated 03/01/22 @ 22:27 by Ramin Robertson) History of History of hip surgery Status post primary low transverse section Social History Smoking Status: Current every day smoker tobacco type: cigarettes ROS ROS ED Constitutional Constitutional ED: Reports body ache(s) and malaise; Denies chills or fever(s) Eyes Eyes: Denies blurry vision, change in vision or diplopia ENT ENT ED: Denies rhinorrhea or sore throat Cardiovascular Cardiovascular: Denies chest pain or palpitations Respiratory/Chest Respiratory/Chest: Denies cough or dyspnea Gastrointestinal Gastrointestinal: Reports abdominal pain, diarrhea, nausea and vomiting; Denies melena Genitourinary Genitourinary ED: Denies dysuria or hematuria Musculoskeletal Musculoskeletal: Denies back pain or neck pain Integumentary Denies abscess or rash Neurologic Neurologic: Reports headache(s); Denies paresthesias or weakness Psychiatric Psychiatric: Denies anxiety or suicidal thoughts EXAM Physical Exam Const Vital Signs: 03/01/22 22:14 Temperature 98.0 F Temperature Source Temporal Pulse Rate 111 H Respiratory Rate 18 Blood Pressure 116/77 Blood Pressure Mean 90 Pulse Ox 98 Oxygen Delivery Method Room Air Positive well nourished and well developed General Appearance ED: well developed and NAD HEENT Reports moist mucous membranes normocephalic and atraumatic Eyes PERRL and EOMs intact bilaterally Neck full ROM and supple Resp normal respiratory effort and clear to auscultation bilaterally Cardio regular rate, regular rhythm and no murmurs GI non-tender and non-distended Auscultation: normoactive bowel sounds Palpation: soft Back/Spine no CVA tenderness General Back: other FROM Extremity normal to inspection General Extremety ED: Negative for edema, pulses abnormal or tenderness General Extremity: Negative for edema or pulses abnormal Neuro oriented x3, CN's II-XII intact bilaterally and no sensory deficits noted Sensorium / Orientation: awake and alert Motor Exam: strength 5/5 throughout Psych mental status grossly normal and thought process normal Skin no rashes or lesions noted and no wounds Skin Narrative: Palpable nontender clear to subcuticular suture that has partially come to the surface at the left side of patient's low transverse surgical incision which is otherwise healing well and there is no signs of erythema or discharge around this suture. MDM MDM MDM Narrative Medical decision making narrative: Chemistries are unremarkable, borderline prerenal azotemia, she was treated with IV fluids and Zofran and feels better, just tired she is tolerating oral fluids. She is here to almost midnight. I think she probably has a viral gastroenteritis. At this time she has been symptomatic for less than 24 hours and I see no reason to do more of a work-up here, especially given the presence of a sick contact with similar symptoms for similar period of time. We discussed reasons to return, she is prescribed Zofran to use as needed for supportive care, fluids encouraged. Lab Data Attestation: I reviewed the patient's lab results. Labs: Laboratory Results - last 24 hr 03/01/22 22:38 Sodium 140 Potassium 3.7 Chloride 110 H Carbon Dioxide 22.0 Anion Gap 8 BUN 14 Creatinine 0.89 Estim Creat Clear Calc 95.78 Est GFR (MDRD) Af Amer 98 Est GFR (MDRD) Non-Af 81 BUN/Creatinine Ratio 15.8 Glucose 137 H Calcium 9.0 Discharge Plan Triage Chief Complaint: Nausea/Vomiting/Diarrhea ED Provider: Dwain Valdez Dx/Rx/DC Orders Clinical Impression: Viral gastroenteritis Instructions: Viral Gastroenteritis Prescriptions: New ondansetron [ondansetron] 4 mg tablet,disintegrating 8 mg PO Q8H PRN PRN (Reason: Nausea) Qty: 20 0RF Primary Care Provider: Care Physician,No Primary Referrals: Care Physician,No Primary [Primary Care Provider] - Doctor,Your [Non-Staff] - 3-5 Days if not improving (or return to ER if unable to keep fluids down or new/different abdominal pains) Disposition Disposition: Home, Self Care
[2022-03-01] MEDS: Ondansetron 4 MG/2 ML Vial IV (22:44)
[2022-03-01] MEDS: 0.9% Normal Saline 1,000 ML 1000 ML IV (22:44)
[2022-03-01 22:57] LABS: Anion Gap 8 (5-15); BUN 14 mg/dL (7-18); BUN/Creat Ratio 15.8 RATIO (10-20); Chloride 110 mmol/L (98-107); Creatinine, Serum 0.89 mg/dL (0.55-1.02); EST Glomerular Filtration Rate 81 mL/min (>60); Est Glom Filt Rate - Afr Amer 98 mL/min (>60); Estimated Creatinine Clearance 95.78 ml/min; Glucose 137 mg/dL (74-106); Potassium 3.7 mmol/L (3.5-5.1); Sodium Level 140 mmol/L (136-145)
== END 2022-03-02 00:03 | disposition home or self-care (01) ==
PROVIDERS: Emergency Provider Emergency Medicine; Visit Provider Emergency Medicine
DX: A08.4 Viral intestinal infection, unspecified (principal); F17.210 Nicotine dependence, cigarettes, uncomplicated
CPT/HCPCS: 80048; 96361; 96374; 99283; J7030; A4216; J2405

== ENCOUNTER 2022-12-29 02:47 | Emergency (ER) | payer MEDICAID, SELFPAY ==
[2022-12-29 02:48] VITALS: BP 115/78; PULSE 69; RESP 18; TEMP 36.6; O2SAT 100; BMI 28.1
[2022-12-29 03:15] LABS: Absolute Lymphocyte Count 2.63 X10^3/uL (0.83-4.51); Absolute Neutrophil Count 4.1 X10^3/uL (2.0-7.7); Basophil# 0.03 X10^3/uL; Basophil% 0.4 % (0-1); Color, Urine Yellow (Yellow); Eosinophil# 0.07 X10^3/uL; Eosinophils% 0.9 % (0-5); Glucose, Dipstick Normal (Normal); Hematocrit 37.1 % (37-47); Hemoglobin 11.6 g/dL (12.0-15.0); Ketone-Dipstick Negative (Negative); Leukocyte Esterase-Dipstick 25 /ul (Negative); Lymphocyte # 2.63 X10^3/ul (0.83-4.51); Lymphocyte % 35.2 % (19-41); Mean Corp Hgb Conc 31.3 g/dL (32-36); Mean Corpuscular Hgb 27.5 pg (27.0-32.0); Mean Corpuscular Volume 87.9 fL (81-99); Mean Platelet Vol. 11.4 fl (6.2-12.0); Monocyte# 0.63 X10^3/uL; Monocyte% 8.4 % (0-10); NRBC Flagged by Analyzer 0 % (0-5); Neutrophil # 4.11 X10^3/uL (2.7-7.7); Nitrite-Dipstick Negative (Negative); Occult Blood-Urine Negative /ul (Negative); POSITIVE COUNT YES; Platelet Count 194 K/mm3 (150-450); Protein-Dipstick 15 mg/dl (Negative); RBC Distribution Width CV 14.5 % (11.6-14.6); RBC Distribution Width SD 46.2 fl (35.1-43.9); Red Blood Count 4.22 M/mm3 (4.2-5.4); Specific Gravity, Urine 1.025 (1.002-1.030); Urine Bilirubin Dipstick Negative (Negative); Urine Clarity Clear (Clear); Urine Urobilinogen 1 mg/dl (Normal); White Blood Count 7.5 K/mm3 (4.4-11.0)
[2022-12-29 03:20] LABS: Differential Indicated SCAN CRITERIA MET
[2022-12-29 03:25] LABS: Bacteria 1+ /hpf (None Seen); Mucous, Urine 1+ /hpf (<or=2+); Red Blood Cells-Urine 0-5 SEEN /hpf (0-5); Squamous Epithelial Cells - UA 5-10 SEEN /hpf (5-10); White Blood Cells 5-10 SEEN /hpf (0-5)
[2022-12-29 03:35] LABS: Differential Comment SCANNED; Platelet Estimate ADEQUATE (ADEQ)
[2022-12-29 03:38] LABS: Anion Gap 8 (5-15); BUN 18 mg/dL (7-18); BUN/Creat Ratio 23.1 RATIO (10-20); Calcium,Total 8.3 mg/dL (8.5-10.1); Chloride 109 mmol/L (98-107); Creatinine, Serum 0.78 mg/dL (0.55-1.02); EST Glomerular Filtration Rate 93 mL/min (>60); Est Glom Filt Rate - Afr Amer 113 mL/min (>60); Estimated Creatinine Clearance 108.32 ml/min; Glucose 97 mg/dL (74-106); Potassium 4.2 mmol/L (3.5-5.1); Sodium Level 141 mmol/L (136-145); hCG Titer Quant., Serum 1 mIU/mL (1-3)
--- NOTE | 2022-12-29 03:50 | CT_ITS ---
EXAM: CT ABDOMEN AND PELVIS WITH INTRAVENOUS CONTRAST CLINICAL INDICATION: ABDOMINAL PAIN TECHNIQUE: Helically acquired images were obtained of the abdomen and pelvis with intravenous contrast. This CT exam was performed using one or more of the following dose reduction techniques: automated exposure control, adjustment of the mA and/or kV according to patient size, and/or use of iterative reconstruction technique. CONTRAST: IV 100mL Isovue-370 RADIATION DOSE: CTDIvol = 16.92 mGy, DLP = 942.06 mGy-cm COMPARISON: No relevant prior studies available. FINDINGS: LOWER THORAX: Unremarkable. Lung bases are clear. No cardiomegaly. No significant pericardial effusion. ABDOMEN: LIVER: Unremarkable. Homogeneous. No focal mass. GALLBLADDER AND BILE DUCTS: The gallbladder is contracted. No calcified gallstones. No gallbladder distention or wall edema. No intra- or extrahepatic biliary ductal dilation. PANCREAS: Unremarkable. No focal cystic or solid mass. SPLEEN: Unremarkable. Normal size without focal cystic or solid mass. ADRENALS: Unremarkable. No nodules. KIDNEYS AND URETERS: Unremarkable. Normal renal size and position. No hydronephrosis. Normal enhancement of the kidneys bilaterally. STOMACH AND BOWEL: Unremarkable. No stomach or bowel distention. No focal inflammatory change. PELVIS: APPENDIX: The appendix is normal. BLADDER: Unremarkable. REPRODUCTIVE: Right ovarian cyst measuring 2.6 cm. ABDOMEN and PELVIS: INTRAPERITONEAL SPACE: Tiny amount of free fluid in the pelvis. No free air. BONES/JOINTS: Unremarkable. No suspicious lytic or blastic abnormality. SOFT TISSUES: Unremarkable. No discrete abdominal or pelvic wall hernia. VASCULATURE: Unremarkable. Abdominal aorta is non-dilated. LYMPH NODES: Unremarkable. No enlarged lymph nodes. CT/Abdomen/Pelvis W IV Cont ONLY IMPRESSION: Right ovarian cyst measuring 2.6 cm. Otherwise unremarkable exam. Electronically Signed: Olaf Garcia MD at 4:51 EST ,
--- NOTE | 2022-12-29 03:51 | ED.VIS.GI ---
HPI HPI - GI History of Present Illness Chief Complaint: Abd Pain Narrative Narrative: 27-year-old female presenting with abdominal pain. She states it hurts in her right lower quadrant and radiates to umbilicus. Patient states this has been present for 2 days and comes and goes. She describes it as aching. Patient has not had a menstrual cycle in the last 3 months. She believes that she is . She has not taken a home test in the last 3 months to confirm this. Denies nausea or vomiting. Denies constipation or diarrhea. Denies urinary or vaginal complaints. PFSH PFS Medical History Asthma Dental caries Poor patient attendance of [facility] Medications NK 12/29/22 [History Last Taken Unknown] Allergy/AdvReac Type Severity Reaction Status Date / Time acetaminophen [From Vicodin] AdvReac Upset Verified 12/29/22 02:52 Stomach hydrocodone [From Vicodin] AdvReac Upset Verified 12/29/22 02:52 Stomach milk AdvReac Nausea Verified 12/29/22 02:52 Surgical History (Updated 03/01/22 @ 22:27 by Ramin Robertson) History of History of hip surgery Status post primary low transverse section Social History Smoking Status: Current every day smoker tobacco type: cigarettes ROS ROS ED Constitutional Constitutional ED: Denies chills, fever(s) or sweats Eyes Eyes: Denies blurry vision or change in vision ENT ENT ED: Denies ear pain or sore throat Cardiovascular Cardiovascular: Denies chest pain, palpitations or racing heartbeat Respiratory/Chest Respiratory/Chest: Denies cough, dyspnea or sputum Gastrointestinal Gastrointestinal: Reports abdominal pain; Denies constipation, diarrhea, nausea or vomiting Genitourinary Genitourinary ED: Denies dysuria, hematuria or urinary frequency Musculoskeletal Musculoskeletal: Denies arthralgias, myalgias or neck pain Integumentary Denies abscess, Abrasions or rash Neurologic Neurologic: Denies headache(s), paresthesias or weakness Psychiatric Psychiatric: Denies anxiety, depression, suicidal ideation or suicidal thoughts Endocrine Endocrinology: Denies polydipsia or polyuria EXAM Physical Exam Const Vital Signs: 12/29/22 02:48 Temperature 97.9 F Temperature Source Temporal Pulse Rate 69 Respiratory Rate 18 Blood Pressure 115/78 Blood Pressure Mean 90 Pulse Ox 100 Oxygen Delivery Method Room Air Positive well nourished General Appearance ED: NAD; Negative for pallor HEENT Reports moist mucous membranes normocephalic and atraumatic Eyes PERRL and EOMs intact bilaterally General Eye ED: Negative for pale conjunctiva Resp normal respiratory effort GI Palpation: tender RLQ and periumbilical Extremity full ROM Neuro CN's II-XII intact bilaterally and moves all extremities Sensorium / Orientation: alert Psych mental status grossly normal Skin General Skin Exam: Negative for jaundice or pallor MDM MDM MDM Narrative Medical decision making narrative: Patient presenting with right lower quadrant abdominal pain. Patient presenting with right flank pain. Differential includes colitis, diverticulitis, gastritis, pancreatitis, acute cholecystitis, constipation, appendicitis, UTI, pyelonephritis, calculi, ureteral calculi, obstruction, malignancy, dehydration, electrolyte abnormalities, ovarian torsion, ovarian cyst, ectopic . CBC shows a normal white blood cell count at 7.5. Hemoglobin stable 11.6. Platelets are normal at 194. Renal function and electrolytes appear normal. I obtained a serum hCG quant which is 1. Urinalysis negative for infection. Given that the patient is not I will obtain a CT of the abdomen pelvis with IV contrast. Patient declines analgesia. CT of the abdomen pelvis shows right-sided ovarian cyst. Patient counseled on findings. She can follow-up with BUSINESS MANAGEMENT ANALYST. Return precautions discussed. Recommend NSAIDs for home. Impression: 1. Right-sided ovarian cyst Lab Data Labs: Laboratory Results - last 24 hr 12/29/22 03:05 WBC 7.5 RBC 4.22 Hgb 11.6 L Hct 37.1 MCV 87.9 MCH 27.5 MCHC 31.3 L RDW Std Deviation 46.2 H RDW Coeff of Basia 14.5 Plt Count 194 MPV 11.4 Immature Gran % (Auto) 0.100 Neut % (Auto) 55.0 Lymph % (Auto) 35.2 [place] % (Auto) 8.4 Eos % (Auto) 0.9 Baso % (Auto) 0.4 Absolute Neuts (auto) 4.1 Absolute Lymphs (auto) 2.63 Nucleated RBC % 0 Differential Comment SCANNED Platelet Estimate ADEQUATE Sodium 141 Potassium 4.2 Chloride 109 H Carbon Dioxide 24.0 Anion Gap 8 BUN 18 Creatinine 0.78 Estim Creat Clear Calc 108.32 Est GFR (MDRD) Af Amer 113 Est GFR (MDRD) Non-Af 93 BUN/Creatinine Ratio 23.1 H Glucose 97 Calcium 8.3 L HCG, Quant 1 Urine Color Yellow Urine Clarity Clear Urine pH 6.0 Ur Specific Cucumber 1.025 Urine Protein 15 H Urine Glucose (UA) Normal Urine Ketones Negative Urine Occult Blood Negative Urine Nitrite Negative Urine Bilirubin Negative Urine Urobilinogen 1 H Ur Leukocyte Esterase 25 H Urine RBC 0-5 SEEN Urine WBC 5-10 SEEN Ur Squamous Epith Cells 5-10 SEEN Urine Bacteria 1+ Urine Mucus 1+ Radiography Diagnostic Testing: Clinical Impression(s) from Imaging Studies Abdomen/Pelvis CT 12/29/22 03:50 IMPRESSION: Right ovarian cyst measuring 2.6 cm. Otherwise unremarkable exam. Electronically Signed: Olaf Garcia MD at 4:51 EST Reading Location ID and State: [address] [place] [address] Tel , Service support , Discharge Plan Triage Chief Complaint: Abd Pain ED Provider: Juan Rivas Dx/Rx/DC Orders Instructions: ED Ovarian Cyst Prescriptions: No Action NK Primary Care Provider: Care Physician,No Primary Referrals: Yuridia Villagomez MD [Med Staff - Active Staff] - 3-5 Days if not improving Care Physician,No Primary [Primary Care Provider] - Disposition Disposition: Home, Self Care
== END 2022-12-29 05:20 | disposition home or self-care (01) ==
PROVIDERS: Emergency Provider Student in an Organized Health Care Education/Training Program; Visit Provider Student in an Organized Health Care Education/Training Program
DX: N83.201 Unspecified ovarian cyst, right side (principal); F17.210 Nicotine dependence, cigarettes, uncomplicated
CPT/HCPCS: 74177; 80048; 81001; 84702; 85025; 99284; A4216

== ENCOUNTER → 2023-05-23 | Outpatient (CLI) | payer MEDICAID, SELFPAY ==
[2023-05-23 09:51] LABS: Hematocrit 41.1 % (37-47); Mean Corp Hgb Conc 31.6 g/dL (32-36); Mean Corpuscular Volume 91.5 fL (81-99); Mean Platelet Vol. 10.1 fl (6.2-12.0); Platelet Count 288 K/mm3 (150-450); RBC Distribution Width CV 14.7 % (11.6-14.6); RBC Distribution Width SD 48.3 fl (35.1-43.9); Red Blood Count 4.49 M/mm3 (4.2-5.4); White Blood Count 7.9 K/mm3 (4.4-11.0)
[2023-05-23 10:11] LABS: Vitamin B12 435 pg/mL (211-911); Vitamin D,25 Hydroxy 18.9 ng/mL
[2023-05-23 10:29] LABS: ALB/GLOB Ratio 1.1 RATIO (0.9-2.4); AST(SGOT) 28 U/L (15-37); Alanine Aminotransfer ALT/SGPT 59 U/L (13-56); Albumin, Serum 3.6 g/dL (3.2-5.0); Alkaline Phosphatase 132 U/L (45-117); Anion Gap 4 (5-15); BUN 13 mg/dL (7-18); Calcium,Total 8.6 mg/dL (8.5-10.1); Chloride 107 mmol/L (98-107); Creatinine, Serum 0.76 mg/dL (0.55-1.02); EST Glomerular Filtration Rate 95 mL/min (>60); Est Glom Filt Rate - Afr Amer 115 mL/min (>60); Ferritin 19 ng/mL (8-252); Globulin 3.4 g/dL (2.2-4.2); Glucose 88 mg/dL (74-106); Iron 91 ug/dL (50-170); Iron Binding Capacity,Total 401 ug/dL (250-450); PERCENT IRON SATURATION 22.7 % (15.0-55.0); Potassium 4.6 mmol/L (3.5-5.1); Sodium Level 141 mmol/L (136-145)
== END | disposition home or self-care (01) ==
LOC: LAB 09:08
PROVIDERS: Referring Provider Family Medicine; Visit Provider Family Medicine
DX: E56.9 Vitamin deficiency, unspecified (principal)
CPT/HCPCS: 36415; 80053; 82306; 82607; 82728; 82746; 83540; 83550; 85027

== ENCOUNTER 2023-06-17 14:48 | Emergency (ER) | payer MEDICAID, SELFPAY ==
[2023-06-17 14:49] VITALS: BP 109/74; PULSE 87; RESP 14; TEMP 36.4; O2SAT 100; BMI 28.8
--- NOTE | 2023-06-17 15:09 | RAD_ITS ---
EXAM: XR LEFT FOOT COMPLETE, 3 OR MORE VIEWS CLINICAL INDICATION: pain TECHNIQUE: Frontal, lateral and oblique views of the left foot. COMPARISON: No relevant prior studies available. FINDINGS: BONES/JOINTS: Calcaneal spur. No acute fracture. No subluxation. Normal alignment. Preservation of the joint space. No sclerotic or destructive changes observed. SOFT TISSUES: Unremarkable. No soft tissue swelling or gas. No radiopaque foreign body. RAD/Foot min 3 Views IMPRESSION: Calcaneal spur. Electronically Signed: Olaf Maynard MD at 15:46 EDT ,
--- NOTE | 2023-06-17 15:15 | EDS_ITS ---
HPI History of Present Illness Chief Complaint: Lower Extremity Injury Narrative Narrative: 28-year-old female presenting with left foot and ankle pain. Patient states she was walking last night stepped in a hole with her left foot. She rolled her left ankle. States it was more swollen last night but she did wrap it up and she did ice, elevate it. She also used ibuprofen. She states is better today but still hurts at the base of the left fifth toe and on the left malleolus. Denies any new trauma today. She is able to walk with antalgic gait. [facility] Medical History Asthma Dental caries Poor patient attendance of long-term Medications acyclovir 400 mg tablet 400 mg PO TID 06/17/23 [History Last Taken Unknown] cyanocobalamin (vitamin B-12) 1,000 mcg tablet 1,000 mcg PO DAILY 06/17/23 [History Last Taken Unknown] ergocalciferol (vitamin D2) 1,250 mcg (50,000 unit) capsule (Vitamin D2) 1,250 mcg PO QWEEK 06/17/23 [History Last Taken Unknown] ferrous sulfate 325 mg (65 mg iron) tablet (FeroSul) 325 mg PO DAILY 06/17/23 [History Last Taken Unknown] Allergy/AdvReac Type Severity Reaction Status Date / Time acetaminophen [From Vicodin] AdvReac Upset Verified 06/17/23 14:52 Stomach hydrocodone [From Vicodin] AdvReac Upset Verified 06/17/23 14:52 Stomach milk AdvReac Nausea Verified 06/17/23 14:52 Surgical History History of History of hip surgery Status post primary low transverse section Social History Smoking Status: Current every day smoker tobacco type: cigarettes ROS ROS ED Constitutional Constitutional ED: Denies chills, fever(s) or sweats Eyes Eyes: Denies blurry vision or change in vision ENT ENT ED: Denies ear pain or sore throat Cardiovascular Cardiovascular: Denies chest pain, palpitations or racing heartbeat Respiratory/Chest Respiratory/Chest: Denies cough, dyspnea or sputum Gastrointestinal Gastrointestinal: Denies abdominal pain, constipation, diarrhea, nausea or vomiting Genitourinary Genitourinary ED: Denies dysuria, hematuria or urinary frequency Musculoskeletal Musculoskeletal: Reports other Details: Left foot and ankle pain ; Denies arthralgias, myalgias or neck pain Integumentary Denies abscess, Abrasions or rash Neurologic Neurologic: Denies headache(s), paresthesias or weakness Psychiatric Psychiatric: Denies anxiety, depression, suicidal ideation or suicidal thoughts Endocrine Endocrinology: Denies polydipsia or polyuria EXAM Physical Exam Const Vital Signs: 06/17/23 14:49 Temperature 97.5 F L Temperature Source Temporal Pulse Rate 87 Respiratory Rate 14 Blood Pressure 109/74 Blood Pressure Mean 85 Pulse Ox 100 Oxygen Delivery Method Room Air Positive well nourished General Appearance ED: NAD HEENT Reports moist mucous membranes normocephalic Chest Wall inspection of chest normal Resp normal respiratory effort Cardio regular rate and regular rhythm Extremity Extremity Narrative: Tenderness to palpation over the left lateral malleolus. There is slight swelling here and bruising. There is tenderness over the base of the fifth metatarsal without any deformity. Left foot neurovascular intact prescription for all 5 toes. Bruising and swelling over the midline of the left tibia. Mild tenderness palpation. No crepitance. No bony deformity Neuro oriented x3 and CN's II-XII intact bilaterally Sensorium / Orientation: alert MDM MDM MDM Narrative Medical decision making narrative: Patient presenting with left ankle and foot pain. Differential includes ankle fracture, foot fracture, contusion. She definitely has a contusion on the left tibia which she does not believe she broke and we will set this. X-rays of the left foot and ankle will be obtained. X-ray of the left foot and left ankle on my interpretation showed no acute fractures. Radiologist interpretation agrees. Patient requesting Aircast and [place] wrap but does not crutches. Discharged stable condition. Impression: 1. Left ankle sprain Lab Data Attestation: I reviewed the patient's lab results. Radiography Diagnostic Testing: Clinical Impression(s) from Imaging Studies Foot X-Ray 06/17/23 15:09 IMPRESSION: Calcaneal spur. Electronically Signed: Olaf Maynard MD at 15:46 EDT , Ankle X-Ray 06/17/23 15:25 IMPRESSION: Calcaneal spur. Electronically Signed: Olaf Maynard MD at 15:46 EDT Reading Location ID and State: [facility] / [place] , Service support , Discharge Plan Triage Chief Complaint: Lower Extremity Injury ED Provider: Juan Rivas Dx/Rx/DC Orders Instructions: ED Ankle Sprain (Adult) Prescriptions: No Action cyanocobalamin (vitamin B-12) 1,000 mcg tablet 1,000 mcg PO DAILY ferrous sulfate [FeroSul] 325 mg (65 mg iron) tablet 325 mg PO DAILY ergocalciferol (vitamin D2) [Vitamin D2] 1,250 mcg (50,000 unit) capsule 1,250 mcg PO QWEEK acyclovir 400 mg tablet 400 mg PO TID Primary Care Provider: Care Physician,No Primary Referrals: Care Physician,No Primary [Primary Care Provider] - Disposition Disposition: Home, Self Care
--- NOTE | 2023-06-17 15:25 | RAD_ITS ---
EXAM: XR LEFT ANKLE COMPLETE, 3 OR MORE VIEWS CLINICAL INDICATION: pain TECHNIQUE: Frontal, lateral and oblique views of the left ankle. COMPARISON: No relevant prior studies available. FINDINGS: BONES/JOINTS: Calcaneal spur. No acute fracture. No subluxation. Normal alignment. Preservation of the joint space. No sclerotic or destructive changes observed. SOFT TISSUES: Unremarkable. No soft tissue swelling or gas. No radiopaque foreign body. RAD/Ankle min 3 Views IMPRESSION: Calcaneal spur. Electronically Signed: Olaf Maynard MD at 15:46 EDT ,
== END 2023-06-17 16:52 | disposition home or self-care (01) ==
PROVIDERS: Emergency Provider Student in an Organized Health Care Education/Training Program; Visit Provider Student in an Organized Health Care Education/Training Program
DX: S93.402A Sprain of unspecified ligament of left ankle, initial encounter (principal); F17.210 Nicotine dependence, cigarettes, uncomplicated; J45.909 Unspecified asthma, uncomplicated; X58.XXXA Exposure to other specified factors, initial encounter
CPT/HCPCS: 73610; 73630; 99283